=== PATIENT | female | born 1950 | race Caucasian/White ===

== ENCOUNTER 2025-01-25 12:18 | Inpatient (IN) | payer MEDICARE, OTHER, SELFPAY ==
[2025-01-25] VITALS (10 sets, daily range): BP systolic 98–160; BP diastolic 44–81; PULSE 80–136; RESP 15–22; TEMP 36.4–36.6; O2SAT 92–100; BMI 40.4; BMI 40.0
--- NOTE | ~2025-01-25 | XR_ITS ---
EXAMINATION: XR CHEST CLINICAL INFORMATION: shortness of breath COMPARISON: None available. TECHNIQUE: Frontal view of the chest was obtained. FINDINGS: Cardiac contours mildly enlarged. Pulmonary vessels are minimally prominent. Lungs are clear. There is no sign of pleural effusion. Bony elements are unremarkable. XR/XR chest 1V IMPRESSION: Cardiomegaly and borderline pulmonary vascular congestion. Electronically signed by: Conner Catalan MD 01/25/2025 12:55 PM EDT
--- NOTE | 2025-01-25 12:27 | ECG_ITS ---
Test Reason : SOB Blood Pressure : */* mmHG Vent. Rate : 138 BPM Atrial Rate : * BPM P-R Int : * ms QRS Dur : 70 ms QT Int : 296 ms P-R-T Axes : * 11 -21 degrees QTcB Int : 448 ms Atrial fibrillation with rapid ventricular response Abnormal ECG No previous ECGs available Referred By: Shweta Cespedes Electronically Signed By: TOMASA TALBERT MD
--- NOTE | 2025-01-25 12:40 | ED_ITS ---
[facility] - General Adult General Chief complaint: Dyspnea Stated complaint: ABD PAIN,SOB PER EMS Time Seen by Provider: 01/25/25 12:24 Source: patient Mode of arrival: EMS Limitations: no limitations History of Present Illness ED Provider: Dr. Cespedes [facility] narrative: 74-year-old female no medical history presented hospital today for worsening shortness of breath. Patient stated that her shortness of breath has been going on since June. However past 3 or 4 days been getting worse. She described as exertional shortness of breath. Denies any chest pain no nausea no vomiting no diarrhea. Denies any recent illness denies any fever. Denies any urinary symptoms. Denies any coughing. No recent travel no recent surgical procedure, no hemoptysis, no leg swelling Related Data Home Medications ?Medication ?Instructions ?Recorded ?Confirmed levothyroxine 01/25/25 losartan 50 mg tablet 50 mg PO DAILY 01/25/2501/07 Allergies Allergy/AdvReac Type Severity Reaction Status Date / Time amoxicillin Allergy Wheezing Verified 01/25/25 12:26 Iodinated Contrast Media (IV Allergy Shortness Verified 01/25/25 12:26 Contrast Dye) of Breath Review of Systems 2 Review of Systems: Pertinent review of system as mentioned in HPI all other system are reviewed and are negative. ON LICENSE OF [facility] Past Medical History ON LICENSE OF [facility] Narrative: As mentioned in HPI Social History Social History Advance Directives: No Advance Directives Information Provided: Yes Do you have a plan to hurt others: No Plan Physical Exam ED Exam Exam: General: Pleasant, no distress, interacting appropriately Head: Normacephalic, atraumatic ENT: oral mucosa moist, neck supple, no tracheal deviation Cardiovascular: Tachycardic rate, irregular rhythm, no murmurs, rubbing, gallops Respiratory: CTAB, no wheeze, rales, rhonchi Gastrointestinal: Soft, non distended, non tender, non guarding Extremities: No limb pain or swelling, no calf tenderness Neurological: Awake and alert, no facial droop noted Skin: Warm and dry Psychiatric: Appropriate mood and thoughts Vital Signs: Vital Signs - 24 hr 01/25/25 12:22 01/25/25 12:40 01/25/25 12:43 Temperature 98 F 97.9 F Pulse Rate 136 H 102 H Pulse Rate [Automated] 107 H Respiratory Rate 22 H 22 H Blood Pressure 160/81 H 118/60 Pulse Oximetry 98 Oxygen Delivery Method Oxygen Flow Rate 01/25/25 13:42 01/25/25 14:12 01/25/25 14:19 Temperature Pulse Rate 100 95 Pulse Rate [Automated] Respiratory Rate 16 Blood Pressure 119/63 113/44 L 115/58 L Pulse Oximetry 99 Oxygen Delivery Method Nasal Cannula Oxygen Flow Rate 2 BMI result Body Mass Index 40.4 Medications Administered Discontinued Medications Generic Name Dose Route Start Last Admin Trade Name Freq PRN Reason Stop Dose Admin Diltiazem HCl 28.4 mg 01/25/25 12:28 01/25/25 12:38 Diltiazem Hcl 50 Mg/10 Ml Vial 0.25 mg/kg (28.4 mg) 01/25/25 12:29 28.4 mg IVPUSH Administration ONCE ONE Diltiazem HCl 90 mg 01/25/25 13:01 01/25/25 13:42 Diltiazem Hcl Sr 90 Mg Cap.Er.12h PO 01/25/25 13:02 90 mg ONCE ONE Administration Protocol Furosemide 20 mg 01/25/25 14:01 01/25/25 14:12 Furosemide 20 Mg/2 Ml Vial IVPUSH 01/25/25 14:02 20 mg ONCE ONE Administration Protocol Sodium Chloride 500 mls @ 500 mls/hr 01/25/25 12:30 01/25/25 13:42 Ns IV 01/25/25 13:29 Infused .Q1H QUAN Infusion Medical Decision Making Medical Decision Making [facility] Narrative: 74-year-old female presenting to hospital today for evaluation of exertional shortness of breath that has been worsening for the past 3 or 4 days. On my examination patient is tachycardic and irregular. I suspect patient's is in AFib. This was confirmed with EKG that was obtained. The patient has any new AFib RVR. Patient rate is between 130s and 150s on the monitor at this time. Blood pressure stable at this time. We will plan to give patient IV diltiazem for her AFib RVR. She has no history of AFib in the past. CBC CMP magnesium will be obtain assess for any signs of secondary cause of her AFib. TSH level will be obtained as well. A screening chest x-ray will be obtained to evaluate for any pulmonary cause of her shortness of breath. BNP and troponin will be obtained as well. Reviewed patient's chest x-ray shows pulmonary vascular congestion with cardiomegaly, BNP slightly elevated at 120, troponin is negative at 5.1, she does have elevation of TSH at 30.19 however free T4 is 0.86. Patient does have a low creatinine of 2.21. On further discussion with patient patient states she does follow with Nephrology. She stated her kidney function is low. It does appear underlying CKD. This may be cardiorenal in nature. Patient's rate is controlled at this time. I did give her IV diltiazem p.o. diltiazem. Her heart rate is in 90s in AFib. Given new onset of AFib in the setting of CHF. We will plan to admit the patient hospital for echocardiogram. Cardiology team was consulted as well. Recommend initiation of DOAC, metoprolol and diuresis. Differential Diagnosis AFib, SVT, V-tach , CHF, COPD, ACS Admission/Observation Consideration of admission/observation: Escalation of care including admission/observation considered Consult Healthcare Provider Management of the patient was discussed with: Hospitalist and Senior Materials Planner (executive advisor) Lab Data MDM Lab Attestation statement: I reviewed the patient's lab results. 01/25/25 12:35 01/25/25 12:36 Labs: Lab Results 01/25/25 01/25/25 Range/Units 12:35 12:36 WBC 12.6 H (4.8-10.8) X10*3/uL RBC 4.90 (4.20-5.50) X10*6/uL Hgb 13.8 (12.0-16.0) g/dl Hct 41.7 (37.0-47.0) % MCV 85.1 (80.0-98.0) fL MCH 28.2 (27.0-33.0) pg MCHC 33.1 (31.0-35.0) g/dl RDW 14.5 (11.0-16.0) % Plt Count 378 (160-400) X10*3/uL MPV 10.7 (9.4-12.3) fL Immature Gran % (Auto) 0.3 (0.0-0.4) % Neut % (Auto) 79.5 H (45-73) % Lymph % (Auto) 8.7 L (20-40) % [place] % (Auto) 9.9 (2-11) % Eos % (Auto) 1.3 (0-4) % Baso % (Auto) 0.3 (0-2) % Lymph # (Auto) 1.1 L (1.2-4.9) X10*3/uL [place] # (Auto) 1.2 (0.1-1.2) X10*3/uL Eos # (Auto) 0.2 (0.0-0.4) X10*3/uL Baso # (Auto) 0.0 (0.0-0.2) X10*3/uL Abs Immat Gran (auto) 0.04 H (0.00-0.03) X10*3/uL Absolute Neuts (auto) 10.0 H (2.0-8.3) x10*3/uL Absolute Nucleated RBC 0.000 (0.0-0.012) X10*3/uL Nucleated RBC % (auto) 0.0 (0.0-0.2) /100WBC PT 12.3 (10.9-12.4) SEC INR 1.1 (0.9-1.1) APTT 27.6 (26.7-34.1) SEC Sodium 138 (135-145) mmol/L Potassium 4.0 (3.3-5.1) mmol/L Chloride 102 (96-108) mmol/L Carbon Dioxide 25 (22-29) mmol/L Anion Gap 15 (12-20) BUN 29 H (9-16) mg/dL Creatinine 2.21 H (0.5-1.4) mg/dL Estim Creat Clear Calc 28.1 Estimated GFR 22 Random Glucose 118 H (60-115) mg/dL Calcium 9.6 (8.4-10.2) mg/dL Magnesium 2.8 H (1.6-2.6) mg/dL Total Bilirubin 0.4 (0.0-1.0) mg/dL AST 24 (5-31) U/L ALT 15 (0-31) U/L Alkaline Phosphatase 150 H (39-117) U/L Troponin I High Sens 5.1 (<3.5-17.0) ng/L B-Natriuretic Peptide 120 H (<100) pg/mL Total Protein 8.1 H (6.5-8.0) g/dL Albumin 3.9 (3.5-5.0) g/dL TSH 30.19 H (0.32-4.0) uIU/mL Free T4 0.86 (0.71-1.85) ng/dL Independent Interpretation I performed an independent interpretation of an: EKG, Rhythm Strip and Plain X- Ray Radiology Impression Discussion of test interpretation with radiology: I have reviewed the radiologist's reading. Critical Care Time Critical Care Time Critical Care Time: Yes Total Critical Care Time: 45 Attestation: Time is exclusive of separately billable procedures. Time includes: direct patient care, patient reassessment, coordination of patient care, interpretation of data (laboratory data, pulse oximetry, arterial blood gases and chest xrays), review of patient's medical records, medical consultation and documentation of patient care. Procedures excluded from critical care time: central intravenous line placement and electrocardiography. Discharge Plan Discharge Clinical Impression: New onset a-fib, CHF (congestive heart failure), Atrial fibrillation with rapid ventricular response Patient Disposition: Admitted As Inpatient Print Language: Kyrgyz
--- NOTE | 2025-01-25 12:40 | PC.NURSE ---
pt presents c/o increased HERNANDEZ x june but worsened over the past few day. pt reports today is the day and i've just had it so came she in to get evaluated. pt denies any recent chest pain/palpitations/dizziness/fevers/chills/increase in leg swelling. pt noted to be in afib RVR w/ a HR in the 150s. ekg obtained by tech. 18gIV placed in the left AC. additional 18gIV placed in the right forearm - labs obtained/sent to lab. medication administered per provider order. effectiveness pending. pt otherwise on RA w/o difficulty - no sob/wob noted. respirations even/unlabored. plan of care ongoing. call brandt placed within reach.
[2025-01-25 12:41] LABS: MANUAL DIFF FLAG NO
[2025-01-25 12:43] LABS: Hematocrit 41.7 % (37.0-47.0); Hemoglobin 13.8 g/dl (12.0-16.0); Imm Gran Abs Auto 0.04 X10*3/uL (0.00-0.03); Imm Gran Pct Auto 0.3 % (0.0-0.4); Lymphocytes Absolute Auto 1.1 X10*3/uL (1.2-4.9); Mean Corpuscular HGB Conc 33.1 g/dl (31.0-35.0); Mean Corpuscular Hemoglobin 28.2 pg (27.0-33.0); Mean Corpuscular Volume 85.1 fL (80.0-98.0); NRBC Abs Auto 0.000 X10*3/uL (0.0-0.012); NRBC Pct Auto 0.0 /100WBC (0.0-0.2); Platelet Count 378 X10*3/uL (160-400); Red Blood Count 4.90 X10*6/uL (4.20-5.50); White Blood Count 12.6 X10*3/uL (4.8-10.8)
[2025-01-25 12:49] LABS: INTERNATIONAL NORM RATIO 1.1 (0.9-1.1); Prothrombin Time 12.3 SEC (10.9-12.4)
[2025-01-25 12:52] LABS: Partial Thromboplastin Time 27.6 SEC (26.7-34.1)
--- NOTE | 2025-01-25 13:01 | ECG_ITS ---
Test Reason : AFIB Blood Pressure : */* mmHG Vent. Rate : 98 BPM Atrial Rate : * BPM P-R Int : * ms QRS Dur : 74 ms QT Int : 346 ms P-R-T Axes : * 30 -16 degrees QTcB Int : 441 ms Atrial fibrillation Abnormal ECG When compared with ECG of 25-Jan-2025 12:29, No significant change was found Referred By: Shweta Cespedes Electronically Signed By: TOMASA TALBERT MD
[2025-01-25 13:03] LABS: Alanine Aminotransferase 15 U/L (0-31); Albumin Level 3.9 g/dL (3.5-5.0); Alkaline Phosphatase 150 U/L (39-117); Anion Gap 15 (12-20); Aspartate Amino Transferase 24 U/L (5-31); B Type Natriuretic Peptide 120 pg/mL (<100); Blood Urea Nitrogen 29 mg/dL (9-16); Calcium 9.6 mg/dL (8.4-10.2); Carbon Dioxide 25 mmol/L (22-29); Chloride 102 mmol/L (96-108); Creatinine Clr Calc Pharmacy 28.1; Estimated Glomerular Filt Rate 22; Magnesium 2.8 mg/dL (1.6-2.6); Potassium 4.0 mmol/L (3.3-5.1); Sodium 138 mmol/L (135-145); Total Protein 8.1 g/dL (6.5-8.0); Troponin-I High Sensitivity 5.1 ng/L (<3.5-17.0)
--- NOTE | 2025-01-25 13:20 | PC.NURSE ---
HR improved s/p medication administration. repeat obtained by [facility]. HR remains in afib w/ a rate of 100-110bpm. pt currently denies any chest pain/palpitations/sob/dizziness/lightheadedness. resting in no apparent distress. pending CXR results. plan of care ongoing. call brandt placed within reach.
[2025-01-25] MEDS: dilTIAZem HCL SR 90 MG CAP.ER.12H PO (13:42)
[2025-01-25 13:53] LABS: Free T4 (Free Thyroxine) 0.86 ng/dL (0.71-1.85)
[2025-01-25] MEDS: Furosemide 20 MG/2 ML VIAL IVPUSH (14:12)
--- NOTE | 2025-01-25 14:30 | PC.NURSE ---
medication administered per provider order. pt notified/aware that she will be admitted to the hospitalist services. agreeable to plan of care.
--- NOTE | 2025-01-25 15:11 | PHA.MEDREC ---
Pharmacy Consult ? Medication Reconciliation Pharmacy has completed the medication reconciliation. Spoke to patient to confirm med list. Patient had her medication bottle with her. patient states she last had her medications yesterday.
--- NOTE | 2025-01-25 15:13 | PHA.MEDREC ---
Addendum entered by Eileen Holguin RPh 01/25/25 15:17: MED REC REVIEWED BY [facility] Original Note: Pharmacy Consult ? Medication Reconciliation Pharmacy has completed the medication reconciliation.. Spoke to patient to confirm med list. Patient had her medication bottle with her. Patient states her provider took her off Amlodipine 5 mg. patient states she last had her medications yesterday.
--- NOTE | 2025-01-25 15:25 | PC.NURSE ---
Pt ambulated to bathroom independently. Denies SOB on exertion
--- NOTE | 2025-01-25 15:33 | PM.IMHP ---
History of Present Illness Date of Service: 01/25/25 Attending physician on admission: Nile Bacon Chief Complaint: Shortness of breath at rest and exertion, fatigue Patient is a 74-year-old female with a background history of hypothyroidism, hypertension and CKD, presenting to hospital with complaints of exertional shortness of breath progressively worsening to shortness of breath at rest, & fatigue and malaise. The patient reports that since June 2024, she suffered significant fatigue and notable exertional dyspnea. She reports that this started suddenly, came out of the blue . Identified unable to perform exertional tasks that she normally used to do such as going upstairs or walking. Reports no chest pain, palpitations, dizziness, loss of consciousness, left arm or shoulder pressure, jaw pain or pressure. Patient denies exertional chest pain or pressure. Reports that the exertional dyspnea has been progressively worsening over the past few months. Notes that her legs feel more heavy; but no overt swelling. No cramping when walking. Reports worsening constipation, decreased appetite; but no weight loss. Endorses significant fatigability and malaise; despite getting a good night's rest. No paroxysmal nocturnal dyspnea, no orthopnea. She reports prior medical diagnosis of hypertension, taking losartan (unsure of med), as well as hypothyroidism taking levothyroxine. She reports taking her meds 50% of the time; noncompliant. She being told a few months ago she suffered with CKD; PCP/Nephrology have reviewed the patient in the past. Review of Systems Review of Systems: Yes all other systems are reviewed and are negative PMFSH Cognitive capacity: Alert and oriented to person place and time Functional capacity: independent ambulation Social History (Updated 01/25/25 @ 15:40 by Nile Bacon MD) Patient Tobacco Use Status: Former Tobacco user Tobacco use type: Cigarette Cigarette Packs Per Day: 1.5 Years Smoked: 20 years Meds Allergies Allergy/AdvReac Type Severity Reaction Status Date / Time amoxicillin Allergy Wheezing Verified 01/25/25 12:26 Iodinated Contrast Media (IV Allergy Shortness Verified 01/25/25 12:26 Contrast Dye) of Breath Active Medications: Current Medications Acetaminophen (Acetaminophen 325 Mg Tablet) 650 mg PO Q6H PRN PRN Reason: Pain, Mild 1-3,fever,headache Calcium Carbonate (Calcium Carbonate 750 Mg Tab.Chew) 750 mg PO Q4H PRN PRN Reason: Heartburn Furosemide (Furosemide 20 Mg/2 Ml Vial) 20 mg IVPUSH BID QUAN; Protocol Heparin Sodium (Porcine) (Heparin Sodium,Porcine 5,000 Unit/Ml Vial) 5,000 unit SUBCUT Q12H QUAN Levothyroxine Sodium (Levothyroxine Sodium 125 Mcg Tablet) 125 mcg PO DAILY [facility] Magnesium Hydroxide (Milk Of Magnesia 30 Ml Oral.Susp) 30 ml PO DAILY PRN PRN Reason: Constipation Melatonin (Melatonin 3 Mg Tablet) 6 mg PO BEDTIME PRN PRN Reason: Insomnia Metoprolol Tartrate (Metoprolol Tartrate 25 Mg Tablet) 25 mg PO BID QUAN; Protocol Sodium Chloride (0.9 % Sodium Chloride Flush 3 Ml Syringe) 3 ml IVFLUSH QSHIFT [facility] Home Medications ?Medication ?Instructions ?Recorded ?Confirmed ?Last Taken ?Type levothyroxine 100 mcg tablet 100 mcg PO DAILY@0630 01/25/25 01/25/25 01/24/25 History losartan 50 mg tablet 50 mg PO DAILY 01/25/25 01/25/25 01/24/25 History Physical Exam Vital Signs and Narrative: Vital Signs: Last Vital Signs Temp 97.9 F 01/25/25 12:40 Pulse 95 01/25/25 14:19 Resp 16 01/25/25 14:19 BP 115/58 L 01/25/25 14:19 Pulse Ox 99 01/25/25 14:19 O2 Del Method Nasal Cannula 01/25/25 14:19 O2 Flow Rate 2 01/25/25 14:19 BMI result Body Mass Index 40.4 General: A&O x3, oriented to time place person and situation, comfortable, no pain Cardiac: S1, S2 auscultated with no S3/4, no MRG. Well perfused. Elevated JVP to the angle of the mandible, bibasilar crepitations auscultated. Heart rate irregularly irregular; 90-100bpm. Respiratory: Decreased breath sounds at the bases plan naturally, if midzone wheezing auscultated. Bibasilar crepitations auscultated. No rales. No phlegm production. No fevers GI/ : No abdominal pain on palpation, no masses or distentions. MSK: Normal ambulation without pain at bony prominences or musculature. No lower extremity edema. Neurological: Normal neurological examination on overview, without obvious CN II-XII abnormalities. Results Labs 01/25/25 12:35 01/25/25 12:36 Labs: Laboratory Results - last 24 hr 01/25/25 01/25/25 12:35 12:36 MCV 85.1 MCH 28.2 MCHC 33.1 RDW 14.5 Plt Count 378 MPV 10.7 Immature Gran % (Auto) 0.3 Neut % (Auto) 79.5 H Lymph % (Auto) 8.7 L [place] % (Auto) 9.9 Eos % (Auto) 1.3 Baso % (Auto) 0.3 Lymph # (Auto) 1.1 L [place] # (Auto) 1.2 Eos # (Auto) 0.2 Baso # (Auto) 0.0 Abs Immat Gran (auto) 0.04 H Absolute Neuts (auto) 10.0 H Absolute Nucleated RBC 0.000 Nucleated RBC % (auto) 0.0 PT 12.3 INR 1.1 APTT 27.6 Anion Gap 15 Estim Creat Clear Calc 28.1 Estimated GFR 22 Random Glucose 118 H Calcium 9.6 Magnesium 2.8 H Total Bilirubin 0.4 AST 24 ALT 15 Alkaline Phosphatase 150 H B-Natriuretic Peptide 120 H Total Protein 8.1 H Albumin 3.9 TSH 30.19 H Free T4 0.86 Imaging Radiologist's Impressions: Impressions Chest X-Ray 01/25/25 12:40 IMPRESSION: Cardiomegaly and borderline pulmonary vascular congestion. Electronically signed by: Conner Catalan MD 01/25/2025 12:55 PM EDT RP Assessment and Plan (1) Hypertension: Qualifiers: Hypertension type: unspecified Qualified Code(s): I10 - Essential (primary) hypertension Status: Acute (2) CHF (congestive heart failure): Qualifiers: Heart failure chronicity: acute Heart failure type: unspecified Qualified Code(s): I50.9 - Heart failure, unspecified Status: Acute (3) Atrial fibrillation with rapid ventricular response: Status: Acute (4) Hypothyroidism: Qualifiers: Hypothyroidism type: unspecified Qualified Code(s): E03.9 - Hypothyroidism, unspecified Status: Acute (5) CKD (chronic kidney disease): Qualifiers: Chronic kidney disease stage 3 subtype: stage 3a (GFR 45-59) Chronic kidney disease stage: stage 3 (moderate) Qualified Code(s): N18.31 - Chronic kidney disease, stage 3a Status: Acute (6) Acute CHF (congestive heart failure): Qualifiers: Heart failure type: unspecified Qualified Code(s): I50.9 - Heart failure, unspecified Status: Acute Plan Very pleasant 74-year-old female, with a background history of hypertension, hypothyroidism, CKD, medication noncompliance, presenting to hospital with exertional dyspnea & fatigue, admitted with atrial fibrillation with RVR precipitated by likely acute CHF exacerbation (unknown EF), with a superimposed hypothyroidism (TSH 30). AFib RVR Hemodynamically stable Patient's heart rate on admission 130-150 beats per minute BP stable No chest pain, altered mental status, hypotension. Patient received IV diltiazem - rate control achieved. [id number] score 4. PLAN - admit to cardiac telemetry - start anticoagulation with apixaban - metoprolol 25 mg b.i.d. p.o. - diltiazem IV for AFib RVR - echocardiography - cardiology consultation placed Acute exacerbation of CHF unknown EF Elevated BNP 120, troponin flat. Chest x-ray revealing vascular congestion with cardiomegaly. Possible precipitation from AFib RVR versus hypothyroidism. CHF exacerbation secondary to possible silent ACS event may have also been precipitating factor. Cardiorenal syndrome possible exacerbant PLAN - echocardiography - I/O q.6 hourly - furosemide 20 mg b.i.d. IV - monitor urinary output - metoprolol 25 mg b.i.d. p.o. - cardiology consultation placed Hypothyroidism TSH 30 T4 0.86 Patient is noncompliant with medications PLAN - levothyroxine 125 mcg q.o.d. p.o. - monitor TSH in 1 week time (outpatient) - consider ultrasonography CKD Creatinine 2.2. Impression superimposed cardiorenal syndrome. .Diuresing patient. Etiology undetermined, possibly hypertensive. Further evaluation for other causative etiologies. PLAN - echocardiography - I/O q.6 hourly - furosemide 20 mg b.i.d. IV - would benefit from Gabe/ARB QUALITY METRICS - VTE: Heparin 5000 t.i.d. - CODE STATUS: Full code - DIET: Cardiac diet Quality Stroke Does the patient have a stroke diagnosis?: No VTE Prior VTE?: No VTE Risk Level:: Medical - moderate - high VTE Device Contraindication: Treatment Not Indicated VTE Drug Contraindication: N/A - Med Ordered
--- OUTSIDE RECORDS SUMMARY | 2025-01-25 15:40 | XMS_ITS | Encounter Summary ---
Author Organization [facility] Address [address] [place] [address] Care Team Providers Care Electro Mechanical Technician Name Role Phone Bishop Narayanan MD Primary Care Provider [phone] Encounter Details Date Type Department Care Team (Late st Contact Info) Description 01/25/2025 [place] [facility] [place] [address] [place] [phone] Lillian Jamil RN Social History Tobacco Use Types Packs/Day Years Used Date Smoking Tobacco: Never Smokeless Tobacco: Never Alcohol Use Standard Drinks/Week Comments Not Asked 0 (1 standard drink = 0.6 oz pur e alcohol) Comments Unknown Sex and Gender Information Value Date Recorded Sex Assigned at Not on file Legal Sex Female 12:51 AM EST Gender Identity Not on file Sexual Orientation Not on file documented as of this encounter Progress Notes * Lillian Jamil RN - 01/25/2025 11:16 AM EDT Pt has been SOB for a year but since Friday she is extremely SOB, she cannot walk more than 25 feet without stopping to catch her breath, walking fro her bed to the bathroom she is exhausted, has to stop to rest, is sweating and is short of breath pt denies any chest pain, she has no swelling ' This is new for her since friday pt to call 911 now and go to the ed documented in this encounter Plan of Treatment Not on file documented as of this encounter Visit Diagnoses Not on filedocumented in this encounter Care Teams Electro Mechanical Technician Relationship Specialty Start Date End Date Bishop Narayanan MD [address] [place], [place] [id number] PCP - General Internal Medicine 11/10/15 documented as of this encounter
--- OUTSIDE RECORDS SUMMARY | 2025-01-25 15:40 | XMS_ITS | Clinical Summary ---
Author Organization [facility] Address [address] [address] Phone Care Team Providers Care Cyber Incident Handler Name Role Phone Bishop Narayanan MD Primary Care Provider [phone] Allergies Active Allergy Reactions Criticality Noted Date Comments Amoxicillin 10/10/2023 Amoxicillin-Pot Clavulanate 10/10/19 24 Iodine 10/10/2023 Sulfa Antibiotics High 10/10/2023 Medications levothyroxine (SYNTHROID, LEVOTHROID) 100 MCG tablet Take 100 mcg by mouth 1 (one) time each day 08/07/2023 Active Magnesium 400 MG tablet Take by mouth Active losartan (Cozaar) 50 MG tablet Take 1 tablet (50 mg total) by mouth 1 (one) time each day 30 tablet 11 10/12/2024 Active Active Problems Problem Noted Date Diagnosed Date Hypertension 10/10/2023 Hypothyroidism 10/10/2023 Morbid obesity 10/10/2023 Elevated fasting glucose 10/10/2023 Hyperlipidemia 10/10/2023 Chronic kidney disease 10/10/2023 Menopausal state 10/10/2023 Herpes zoster 10/10/2023 Degeneration of intervertebral disc 10/10/2023 Osteoarthritis 10/10/2023 Immunizations Immunization Administration Dates Next Due Pneumococcal Polysaccharide 02/15/2015 Tdap 01/26/2013 Social History Tobacco Use Types Packs/Day Years Used Date Smoking Tobacco: Never Assessed Comments Unknown Sex and Gender Information Value Date Recorded Sex Assigned at Not on file Legal Sex Female 9:32 AM EDT Gender Identity Not on file Sexual Orientation Not on file Last Filed Vital Signs Vital Sign Reading Time Taken Comments Blood Pressure 132/90 10/12/2024 1:25 PM EDT Pulse 81 10/12/2024 1:25 PM EDT Temperature - - Respiratory Rate - - Oxygen Saturation 98% 10/12/2024 1:25 PM EDT Inhaled Oxygen Concentration - - Weight 111 kg (245 lb) 10/12/2024 1:25 PM EDT Height - - Body Mass Index - - Plan of Treatment Health Maintenance Due Date Last Done Comments Breast Cancer Screening 1949 Colorectal Cancer Screening: Annual FOBT 1998 Colorectal Cancer Screening: Colonoscopy 1998 Colorectal Cancer Screening: Sigmoidoscopy 1998 Pneumococcal Vaccine: 50+ Ye ars (2 of 2 - PCV) 02/16/2016 02/15/2015 Influenza Vaccine (#1) 2025 Hepatitis B Vaccine Aged Out No longe r eligible based on patient's age to complete this topic Insurance Medicare Medicare Care Teams Cyber Incident Handler Relationship Specialty Start Date End Date Bishop Narayanan MD [address] [place] [id number] PCP - General Internal Medicine 08/25/23
[2025-01-25 16:29] LABS: Hemoglobin A1C 189.6237 umol/L; Total Hemoglobin (HGBA1C) 5359.8916 umol/L
[2025-01-25] MEDS: 0.9 % Sodium Chloride Flush 3 ML SYRINGE IVFLUSH (20:57)
[2025-01-26] VITALS (8 sets, daily range): BP systolic 99–128; BP diastolic 55–76; PULSE 72–99; RESP 16–18; TEMP 36.3–36.7; O2SAT 92–94; BMI 40.0
[2025-01-26 06:49] LABS: MANUAL DIFF FLAG NO
[2025-01-26 06:53] LABS: Hematocrit 39.3 % (37.0-47.0); Hemoglobin 13.0 g/dl (12.0-16.0); Imm Gran Abs Auto 0.05 X10*3/uL (0.00-0.03); Imm Gran Pct Auto 0.6 % (0.0-0.4); Lymphocytes Absolute Auto 1.1 X10*3/uL (1.2-4.9); Mean Corpuscular HGB Conc 33.1 g/dl (31.0-35.0); Mean Corpuscular Hemoglobin 28.3 pg (27.0-33.0); Mean Corpuscular Volume 85.4 fL (80.0-98.0); NRBC Abs Auto 0.000 X10*3/uL (0.0-0.012); NRBC Pct Auto 0.0 /100WBC (0.0-0.2); Platelet Count 298 X10*3/uL (160-400); Red Blood Count 4.60 X10*6/uL (4.20-5.50); White Blood Count 8.8 X10*3/uL (4.8-10.8)
--- NOTE | 2025-01-26 07:00 | CA_ITS ---
Transthoracic Echocardiogram Patient (Last, First, Middle): Aisha Gonsalves, Gender: Female Date of : 1950 Age: 74 Procedure Date: 01/26/2025 Procedure Type: Transthoracic Echocardiogram Location: [facility] [place] Height: 167.64 cm Weight: 113.4 kg BSA: 2.20 m2 Heart Rate: bpm BP: 115 / 58 mmHg Oracle Applications Developer: Referring MD: Nile Bacon MD Spice Fumigator: Den Alejandre MD Symptoms: afib RVR, impression of new CHF diagnosis Study Quality: Adequate with contrast ECG Rhythm: Atrial Fibrillation Conclusions: - 1. Low normal LV ejection fraction with LVEF of 50-55% with mild LVH 2. Mildly dilated left atrium 3. Normal measured RV systolic pressure 4. No gross pericardial effusion Findings Procedure Information Contrast agent, definity, is being given per protocol without apparent complications. Left Ventricle Normal left ventricular cavity size. There is mildly increased left ventricular wall thickness. The left ventricular systolic function is low normal. The visually estimated ejection fraction is between 50-55%. Diastolic function is indeterminate on the basis of available data. Right Ventricle Normal right ventricular cavity size and systolic function. Atria The left atrium is mildly dilated. Interatrial shunt cannot be excluded. The right atrium is normal in size. Aortic Valve There is mild calcification of the aortic valve. There is no aortic valve stenosis. There is no aortic valve regurgitation. Mitral Valve There is mild anterior and posterior mitral leaflet thickening. There is mild mitral valve regurgitation. There is no mitral valve stenosis. Pulmonic Valve The pulmonic valve was not well visualized. Tricuspid Valve Likely normal tricuspid valve structure and function. There is trace tricuspid valve regurgitation. The right ventricular systolic pressure is normal. The right ventricular systolic pressure is 14 mmHg. Normal right atrial pressure. There is no evidence of pulmonary hypertension. Great Vessels All visible segments of the aorta are normal in size. The pulmonary artery was not well visualized. There is no dilatation of the ascending aorta measuring 3.20 cm. Venous The inferior vena cava is normal in size and collapses greater than 50% with inspiration. Pericardium/Pleural There is no evidence of pericardial effusion. Prior Study Comparison No prior study available for comparison. Measurements 2D Linear Measurements IVSd: 1.25 0.6-0.9/0.6-1.0 cm LVIDd: 3.79 3.9-5.3/4.2-5.9 cm LVIDd Index: 1.72 2.4-3.2/2.2-3.1 cm/m2 LVIDs: 2.68 2.0-3.6 cm LVPWd: 1.26 0.7-1.1 cm Ao Root: 2.90 2.1-3.5 cm LA Diam: 4.70 2.7-3.8/3.0-4.0 cm LAIDs Index: 2.14 1.5-2.3 cm/m2 LV Mass: 203.43 67-162/88-224 g LV Mass Index: 92.47 43-95/49-115 g/m2 LVOT Diam: 2.00 3.0+(-)1.3 cm 2D Systolic Function EF 4C: 48.70 >55% EF 2C: 54.60 >55% EF BiP: 52.60 >55% Mitral Valve MV Pk E: 1.30 MV Decel Time: 440.00 E'Lateral: 6.09 E'Medial: 4.90 E/E' Med: 26.50 E/E' Lat: 21.30 PHT: 129.00 MVA PHT: 1.71 Decel [place]: 2.96 Aortic Valve AoV Pk Rojelio: 1.77 AoV Mn Rojelio: 1.30 AoV VTI: 0.36 AoV Pk Grad: 13.00 Aov Mn Grad: 8.00 CHRIS Cont.VTI: 1.35 LVOT LVOT Pk Rojelio: 0.71 LVOT Mn Rojelio: 0.50 LVOT VTI: 0.15 LVOT Pk Grad: 2.00 LVOT Mn Grad: 1.00 LVOT Diam: 2.00 LVOT Area: 3.14 Diastolic Function MV Pk E: 1.30 E'Medial: 4.90 E/E' Med: 26.50 E' Laterial: 6.09 E/E' Lat: 21.30 Right Ventricle TAPSE (mm): 21.70 TVS' Rojelio: 9.68 Tricuspid Valve TR Pk Rojelio: 1.67 TR Pk Grad: 11.00 RA Press: 3.00 RVSP: 14.00 Great Vessels Aorta Ao Root-2D: 2.90 2.0-3.7 cm Ao Asc: 3.20 2.1-3.4 cm Pulmonary Valve PV Pk Rojelio: 0.86 Peak PV Grad: 3.00 Updated in Other Vendor System with Status of Final Den Alejandre MD electronically signed on 01/26/2025 11:39:55 AM with status of Final
[2025-01-26 07:17] LABS: Anion Gap 14 (12-20); Blood Urea Nitrogen 28 mg/dL (9-16); Calcium 9.2 mg/dL (8.4-10.2); Carbon Dioxide 24 mmol/L (22-29); Chloride 105 mmol/L (96-108); Cholesterol 203 mg/dL (<200); Creatinine Clr Calc Pharmacy 30.3; Estimated Glomerular Filt Rate 24; HDL Cholesterol 37 mg/dL (>40); Magnesium 2.7 mg/dL (1.6-2.6); Potassium 4.2 mmol/L (3.3-5.1); Sodium 139 mmol/L (135-145); Triglycerides 123 mg/dL (<150)
[2025-01-26 07:40] LABS: Glucose, Whole Blood 100 mg/dL (60-115)
[2025-01-26] MEDS: Furosemide 20 MG/2 ML VIAL IVPUSH ×2 (08:07→14:30)
[2025-01-26] MEDS: 0.9 % Sodium Chloride Flush 3 ML SYRINGE IVFLUSH ×3 (08:10→23:22)
--- NOTE | 2025-01-26 09:55 | MHC.CM.PN ---
CM ATTEMPTED TO MEET W/PT X2, FIRST PT WAS HAVING ECHO AND 2ND TIME PT W/BUSINESS OFFICE SPECIALIST, FRANKO TO REVISIT.
--- NOTE | 2025-01-26 11:04 | P.CONCA_ITS ---
History of Present Illness History of Present Illness Date of Service: 01/26/25 Requesting physician: Shweta Cespedes Consult reason: atrial fibrillation and congestive heart failure Chief complaint: ABD PAIN,SOB PER EMS Narrative: I was consulted to see Aisha in cardiology consultation today as she presented to the emergency room with profuse sweating and worsening shortness of breath over last 3-4 days. Patient says she lives in his elderly housing and who was feeling this symptoms then went down to the common area and spoke to some of the people and they advised her to come to the emergency room with these symptoms although she declined and subsequently she started feeling more poorly with increasing shortness of breath and then decided to call 911 came to the emergency room. When she came to the emergency room she was noted to be in atrial fibrillation rapid ventricular response which is a new finding for her. She has no prior history of atrial fibrillation but thinks that this might be present since June although she is not sure. She has never had any history of congestive heart failure. BNP was mildly elevated although findings on radiographic imaging consistent with heart failure. She was given IV diuresis in his diuresed well although intake and output chart have not been well published. She underwent an echocardiogram this morning. She was given Cardizem for rate control and she has been adequately rate control as tolerated on metoprolol. She has not been started on oral anticoagulation therapy for route some reason. She has no bleeding issues. She has no prior vascular disease or myocardial infarction or stroke. She does have prior history of hypertension. She denies any palpitations related to atrial fibrillation. No lightheadedness, syncope. She does complain of daytime somnolence Review of Systems 2 Constitutional: Constitutional: Reports excessive sweating and Reports weakness Eyes: Eyes: Reports no additional eye complaints Cardiovascular: Cardiovascular: Denies chest pain, Denies pedal edema, Denies lightheadedness, Denies Loss of Consciousness, Denies palpitations, Reports dyspnea and Reports dyspnea on exertion Respiratory: Respiratory: Reports no additional respiratory complaints, Reports dyspnea and Reports dyspnea on exertion Gastrointestinal: Gastrointestinal: Reports no additional gastrointestinal complaints Genitourinary: Genitourinary: Reports no additional female genitourinary complaints Musculoskeletal: Musculoskeletal: Reports no additional musculoskeletal complaints Integumentary/Breasts: Skin/Breast: Reports system reviewed and no additional complaints, except as docu Neurologic: Reports system reviewed and no additional complaints, except as documented and Reports weakness Psychiatric: Psychiatric: Reports no additional psychiatric complaints Endocrine: Endocrine: Reports no additional endocrine complaints, Reports excessive sweating and Denies palpitations [facility] Social History Social History (Updated 01/25/25 @ 15:40 by Nile Bacon MD) Household Members: None Patient Tobacco Use Status: Former Tobacco user Tobacco use type: Cigarette Cigarette Packs Per Day: 1.5 Years Smoked: 20 years Meds Allergies Allergy/AdvReac Type Severity Reaction Status Date / Time amoxicillin Allergy Wheezing Verified 01/25/25 12:26 Iodinated Contrast Media (IV Allergy Shortness Verified 01/25/25 12:26 Contrast Dye) of Breath Active Medications: Current Medications Acetaminophen (Acetaminophen 325 Mg Tablet) 650 mg PO Q6H PRN PRN Reason: Pain, Mild 1-3,fever,headache Calcium Carbonate (Calcium Carbonate 750 Mg Tab.Chew) 750 mg PO Q4H PRN PRN Reason: Heartburn Furosemide (Furosemide 20 Mg/2 Ml Vial) 20 mg IVPUSH BID [facility]; Protocol Last Admin: 01/26/25 08:07 Dose: 20 mg Heparin Sodium (Porcine) (Heparin Sodium,Porcine 5,000 Unit/Ml Vial) 5,000 unit SUBCUT Q12H [facility] Last Admin: 01/26/25 06:17 Dose: 5,000 unit Levothyroxine Sodium (Levothyroxine Sodium 125 Mcg Tablet) 125 mcg PO DAILY@0630 [facility] Last Admin: 01/26/25 06:18 Dose: 125 mcg Magnesium Hydroxide (Milk Of Magnesia 30 Ml Oral.Susp) 30 ml PO DAILY PRN PRN Reason: Constipation Melatonin (Melatonin 3 Mg Tablet) 6 mg PO BEDTIME PRN PRN Reason: Insomnia Metoprolol Tartrate (Metoprolol Tartrate 25 Mg Tablet) 25 mg PO BID [facility]; Protocol Last Admin: 01/26/25 08:07 Dose: 25 mg Sodium Chloride (0.9 % Sodium Chloride Flush 3 Ml Syringe) 3 ml IVFLUSH [facility] Last Admin: 01/26/25 08:10 Dose: 3 ml Home Medications ?Medication ?Instructions ?Recorded ?Confirmed ?Last Taken ?Type levothyroxine 100 mcg tablet 100 mcg PO DAILY@0630 01/25/25 01/24/25 History losartan 50 mg tablet 50 mg PO DAILY 01/25/2501/0701/24/25 History Physical Exam 2 Vital Signs: Vital Signs: Last Vital Signs Temp 98.1 F 01/26/25 07:55 Pulse 84 01/26/25 07:55 Resp 17 01/26/25 07:55 BP 119/55 L 01/26/25 07:55 Pulse Ox 94 01/26/25 07:55 O2 Del Method Room Air 01/26/25 07:55 O2 Flow Rate 2 01/25/25 14:19 BMI result Body Mass Index 40.0 Const: General: cooperative, comfortable, no acute distress, alert and awake Nutritional Appearance: obese Orientation/consciousness: patient oriented x3 HEENT: Head: Yes normocephalic and Yes atraumatic Neck: Neck: Yes trachea midline, Yes supple and Yes no JVD Resp: Effort & Inspection: normal respiratory effort Auscultation: clear to auscultation bilaterally Cardio: Jugular venous distension: no JVD Rate: regular rate Rhythm: a bnormal rhythm irregularly irregular Heart sounds: S1 normal heart sound present, S2 normal heart sound present, no click, no gallops and no murmurs GI: Auscultation: normal bowel sounds Skin: General skin exam: no rashes or lesions noted Neuro: General: patient oriented x3 and no focal motor deficits Extrem: General: Yes no clubbing, cyanosis or edema Objective Labs and Meds 01/26/25 06:30 01/26/25 06:30 Lab results: Laboratory Results - last 24 hr 01/25/25 01/25/25 01/26/25 12:35 12:36 06:30 WBC 12.6 H 8.8 RBC 4.90 4.60 Hgb 13.8 13.0 Hct 41.7 39.3 MCV 85.1 85.4 MCH 28.2 28.3 MCHC 33.1 33.1 RDW 14.5 14.5 Plt Count 378 298 MPV 10.7 10.7 Immature Gran % (Auto) 0.3 0.6 H Neut % (Auto) 79.5 H 74.8 H Lymph % (Auto) 8.7 L 12.8 L [place] % (Auto) 9.9 9.1 Eos % (Auto) 1.3 2.2 Baso % (Auto) 0.3 0.5 Lymph # (Auto) 1.1 L 1.1 L [place] # (Auto) 1.2 0.8 Eos # (Auto) 0.2 0.2 Baso # (Auto) 0.0 0.0 Abs Immat Gran (auto) 0.04 H 0.05 H Absolute Neuts (auto) 10.0 H 6.6 Absolute Nucleated RBC 0.000 0.000 Nucleated RBC % (auto) 0.0 0.0 PT 12.3 INR 1.1 APTT 27.6 Sodium 138 139 Potassium 4.0 4.2 Chloride 102 105 Carbon Dioxide 25 24 Anion Gap 15 14 BUN 29 H 28 H Creatinine 2.21 H 2.04 H Estim Creat Clear Calc 28.1 30.3 Estimated GFR 22 24 POC Glucose Random Glucose 118 H 102 Estimat Average Glucose 108 Hemoglobin A1c % 5.4 Calcium 9.6 9.2 Magnesium 2.8 H 2.7 H Total Bilirubin 0.4 AST 24 ALT 15 Alkaline Phosphatase 150 H Troponin I High Sens 5.1 B-Natriuretic Peptide 120 H Total Protein 8.1 H Albumin 3.9 Triglycerides 123 Cholesterol 203 H LDL Cholesterol, Calc 142 H HDL Cholesterol 37 L TSH 30.19 H Free T4 0.86 01/26/25 07:31 WBC RBC Hgb Hct MCV MCH MCHC RDW Plt Count MPV Immature Gran % (Auto) Neut % (Auto) Lymph % (Auto) [place] % (Auto) Eos % (Auto) Baso % (Auto) Lymph # (Auto) [place] # (Auto) Eos # (Auto) Baso # (Auto) Abs Immat Gran (auto) Absolute Neuts (auto) Absolute Nucleated RBC Nucleated RBC % (auto) PT INR APTT Sodium Potassium Chloride Carbon Dioxide Anion Gap BUN Creatinine Estim Creat Clear Calc Estimated GFR POC Glucose 100 Random Glucose Estimat Average Glucose Hemoglobin A1c % Calcium Magnesium Total Bilirubin AST ALT Alkaline Phosphatase Troponin I High Sens B-Natriuretic Peptide Total Protein Albumin Triglycerides Cholesterol LDL Cholesterol, Calc HDL Cholesterol TSH Free T4 Imaging Radiologist's impression: Impressions Chest X-Ray 01/25/25 12:40 IMPRESSION: Cardiomegaly and borderline pulmonary vascular congestion. Electronically signed by: Conner Catalan MD 01/25/2025 12:55 PM EDT Assessment and Plan (1) Atrial fibrillation with rapid ventricular response: Status: Acute Patient with new onset atrial fibrillation, exact onset unclear from her history. Definitely more than few days. Heart rate is very well controlled on current medications. Will continue rate control for now with metoprolol. Her symptoms are most likely suggestive of heart failure as well as poor stroke volume related to AFib causing her to have ENEDELIA could represent cardiorenal syndrome. Patient she had also been oral anticoagulation therapy and would start her on Eliquis 5 mg b.i.d.. Will review the echocardiogram. Will need outpatient sleep study for management. Had a very detailed discussion about management of atrial fibrillation with her and I have discussed in the future she will most likely will pursue rhythm control approach. (2) Acute CHF (congestive heart failure): Qualifiers: Heart failure type: unspecified Qualified Code(s): I50.9 - Heart failure, unspecified Status: Acute Acute heart failure, preliminary LV ejection fraction seems to be preserved. Most likely related to acute atrial fibrillation. Underlying hypertension. Importance of compliance with medication was discussed. Blood pressure is currently optimized. Continue losartan therapy. Monitor renal function. Would switch Lasix to 20 mg daily p.o. and also start Jardiance 10 mg for her regimen. Will review echocardiogram. Will require ischemic workup as outpatient. Will follow with you Procedures Date of Service Date of Service: 01/26/25
--- NOTE | 2025-01-26 14:49 | MHC.CM.PN ---
EMR REVIEWED, PT W/CHF AND ON IV LASIX BID, PER CARDIO PLAN TO SWITCH TO PO LASIX AND ADD JARDIANCE, CM MET W/PT WHO REPORTS SHE LIVES ALONE IN GROUP HOME APT, IS FULLY INDEP W/CARE, DENIES USE OF DME/SERVICES, GOAL FOR DC IS HOME AND PT WILL NEED [facility] SHUTTLE VS LYFT. PT VERIFIES PCP IS DR. BAIN AT [facility] AND HER HCP IS LISET WHITMAN # ON FILE, PT REPORTS COPY IS AT HOME ABD WAS DONE W/SENIOR HOUSING.
--- NOTE | 2025-01-26 16:31 | P.PNIM_ITS ---
Subjective Subjective Date of Service: 01/26/25 Interval History: No new complaints or issues. Feels overall well. Improved breathing significantly. Denies chest pain palpitations dizziness Physical Exam 2 Exam: Exam: General: A&O x3, oriented to time place person and situation, comfortable, no pain Cardiac: S1, S2 auscultated with no S3/4, no MRG. Well perfused. Elevated JVP to the angle of the mandible, bibasilar crepitations auscultated. Heart rate irregularly irregular; 90-100bpm. Respiratory: Decreased breath sounds at the bases plan naturally, if midzone wheezing auscultated. Bibasilar crepitations auscultated. No rales. No phlegm production. No fevers GI/ : No abdominal pain on palpation, no masses or distentions. MSK: Normal ambulation without pain at bony prominences or musculature. No lower extremity edema. Neurological: Normal neurological examination on overview, without obvious CN II-XII abnormalities. Vital Signs: Vital Signs: Last Vital Signs Temp 97.4 F 01/26/25 15:14 Pulse 76 01/26/25 15:14 Resp 18 01/26/25 15:14 BP 122/57 L 01/26/25 15:14 Pulse Ox 93 01/26/25 15:14 O2 Del Method Room Air 01/26/25 15:14 O2 Flow Rate 2 01/25/25 14:19 BMI result Body Mass Index 40.0 Objective Data Active Medications Acetaminophen (Acetaminophen 325 Mg Tablet) 650 mg PO Q6H PRN PRN Reason: Pain, Mild 1-3,fever,headache Calcium Carbonate (Calcium Carbonate 750 Mg Tab.Chew) 750 mg PO Q4H PRN PRN Reason: Heartburn Furosemide (Furosemide 20 Mg/2 Ml Vial) 20 mg IVPUSH BID [facility]; Protocol Last Admin: 01/26/25 14:30 Dose: 20 mg Documented By: CHRISTIN Comments: PER MD Yap to be administered early Heparin Sodium (Porcine) (Heparin Sodium,Porcine 5,000 Unit/Ml Vial) 5,000 unit SUBCUT Q12H [facility] Last Admin: 01/26/25 15:43 Dose: 5,000 unit Documented By: CHRISTIN Levothyroxine Sodium (Levothyroxine Sodium 125 Mcg Tablet) 125 mcg PO DAILY@0630 [facility] Last Admin: 01/26/25 06:18 Dose: 125 mcg Documented By: JENNIFER Magnesium Hydroxide (Milk Of Magnesia 30 Ml Oral.Susp) 30 ml PO DAILY PRN PRN Reason: Constipation Melatonin (Melatonin 3 Mg Tablet) 6 mg PO BEDTIME PRN PRN Reason: Insomnia Metoprolol Tartrate (Metoprolol Tartrate 25 Mg Tablet) 25 mg PO BID [facility]; Protocol Last Admin: 01/26/25 08:07 Dose: 25 mg Documented By: CHRISTIN Sodium Chloride (0.9 % Sodium Chloride Flush 3 Ml Syringe) 3 ml IVFLUSH QSHIFT [facility] Last Admin: 01/26/25 14:33 Dose: 3 ml Documented By: CHRISTIN Labs 01/26/25 06:30 01/26/25 06:30 Labs: Laboratory Results - last 24 hr 01/26/25 01/26/25 06:30 07:31 MCV 85.4 MCH 28.3 MCHC 33.1 RDW 14.5 Plt Count 298 MPV 10.7 Immature Gran % (Auto) 0.6 H Neut % (Auto) 74.8 H Lymph % (Auto) 12.8 L [place] % (Auto) 9.1 Eos % (Auto) 2.2 Baso % (Auto) 0.5 Lymph # (Auto) 1.1 L [place] # (Auto) 0.8 Eos # (Auto) 0.2 Baso # (Auto) 0.0 Abs Immat Gran (auto) 0.05 H Absolute Neuts (auto) 6.6 Absolute Nucleated RBC 0.000 Nucleated RBC % (auto) 0.0 Anion Gap 14 Estim Creat Clear Calc 30.3 Estimated GFR 24 POC Glucose 100 Random Glucose 102 Calcium 9.2 Magnesium 2.7 H Triglycerides 123 Cholesterol 203 H LDL Cholesterol, Calc 142 H HDL Cholesterol 37 L Assessment and Plan (1) Hypertension: Status: Acute (2) Acute CHF (congestive heart failure): Status: Acute (3) Atrial fibrillation with rapid ventricular response: Status: Acute (4) Hypothyroidism: Status: Acute (5) CKD (chronic kidney disease): Status: Acute Plan Very pleasant 74-year-old female, with a background history of hypertension, hypothyroidism, CKD, medication noncompliance, presenting to hospital with exertional dyspnea & fatigue, admitted with atrial fibrillation with RVR precipitated by likely acute CHF exacerbation (unknown EF), with a superimposed hypothyroidism (TSH 30). AFib RVR Hemodynamically stable Patient's heart rate on admission 130-150 beats per minute BP stable No chest pain, altered mental status, hypotension. Patient received IV diltiazem - rate control achieved. [id number] score 4. PLAN - admit to cardiac telemetry - start anticoagulation with apixaban - metoprolol 25 mg b.i.d. p.o. - diltiazem IV for AFib RVR - echocardiography - cardiology consultation placed Acute exacerbation of CHF unknown EF Elevated BNP 120, troponin flat. Chest x-ray revealing vascular congestion with cardiomegaly. Possible precipitation from AFib RVR versus hypothyroidism. CHF exacerbation secondary to possible silent ACS event may have also been precipitating factor. Cardiorenal syndrome possible exacerbant PLAN - echocardiography - I/O q.6 hourly - furosemide 20 mg b.i.d. IV - monitor urinary output - metoprolol 25 mg b.i.d. p.o. - cardiology consultation placed Hypothyroidism TSH 30 T4 0.86 Patient is noncompliant with medications PLAN - levothyroxine 125 mcg q.o.d. p.o. - monitor TSH in 1 week time (outpatient) - consider ultrasonography CKD Creatinine 2.2. Impression superimposed cardiorenal syndrome. .Diuresing patient. Etiology undetermined, possibly hypertensive. Further evaluation for other causative etiologies. PLAN - echocardiography - I/O q.6 hourly - furosemide 20 mg b.i.d. IV - would benefit from Gabe/ARB QUALITY METRICS - VTE: Heparin 5000 t.i.d. - CODE STATUS: Full code - DIET: Cardiac diet Total time managing care of this patient today: 35 minutes. Quality Stroke Does the patient have a stroke diagnosis?: No VTE Prior VTE?: No VTE Risk Level:: Medical - moderate - high VTE Device Contraindication: Treatment Not Indicated VTE Drug Contraindication: N/A - Med Ordered
[2025-01-27 03:22] VITALS: BP 121/69; PULSE 69; RESP 18; TEMP 36; O2SAT 96
[2025-01-27 06:00] VITALS: BMI 40.3
[2025-01-27 06:50] LABS: MANUAL DIFF FLAG NO
[2025-01-27 07:01] LABS: Hematocrit 38.3 % (37.0-47.0); Hemoglobin 12.6 g/dl (12.0-16.0); Imm Gran Abs Auto 0.05 X10*3/uL (0.00-0.03); Imm Gran Pct Auto 0.5 % (0.0-0.4); Lymphocytes Absolute Auto 1.2 X10*3/uL (1.2-4.9); Mean Corpuscular HGB Conc 32.9 g/dl (31.0-35.0); Mean Corpuscular Hemoglobin 27.9 pg (27.0-33.0); Mean Corpuscular Volume 84.9 fL (80.0-98.0); NRBC Abs Auto 0.000 X10*3/uL (0.0-0.012); NRBC Pct Auto 0.0 /100WBC (0.0-0.2); Platelet Count 327 X10*3/uL (160-400); Red Blood Count 4.51 X10*6/uL (4.20-5.50); White Blood Count 9.9 X10*3/uL (4.8-10.8)
[2025-01-27 07:18] LABS: Anion Gap 14 (12-20); Blood Urea Nitrogen 25 mg/dL (9-16); Calcium 9.0 mg/dL (8.4-10.2); Carbon Dioxide 27 mmol/L (22-29); Chloride 102 mmol/L (96-108); Creatinine Clr Calc Pharmacy 32.8; Estimated Glomerular Filt Rate 26; Magnesium 2.5 mg/dL (1.6-2.6); Potassium 4.1 mmol/L (3.3-5.1); Sodium 139 mmol/L (135-145)
[2025-01-27 07:25] LABS: B Type Natriuretic Peptide 103 pg/mL (<100)
[2025-01-27 07:35] VITALS: BP 110/60; PULSE 97; RESP 18; TEMP 36.3; O2SAT 94
[2025-01-27] MEDS: Furosemide 20 MG/2 ML VIAL IVPUSH (08:10)
[2025-01-27] MEDS: 0.9 % Sodium Chloride Flush 3 ML SYRINGE IVFLUSH (08:10)
[2025-01-27] MEDS: Milk of Magnesia 30 ML ORAL.SUSP PO (08:13)
--- NOTE | 2025-01-27 10:35 | P.PNCA_ITS ---
Subjective Subjective Date of Service: 01/27/25 Principal diagnosis: CHF, AFib. Interval history: Heart rate remains controlled. Creatinine has downtrended from yesterday. Echocardiogram showed low normal EF of 50-55% with mild LVH with mildly dilated left atrium. She was no active symptoms. Review of Systems Review of Systems Yes all other systems are reviewed and are negative Cardiovascular: Reports no additional cardiovascular complaints Respiratory: Reports no additional respiratory complaints Genitourinary: Reports no additional female genitourinary complaints Musculoskeletal: Reports no additional musculoskeletal complaints Skin/Breast: Reports system reviewed and no additional complaints, except as docu Physical Exam Vital Signs: Last Vital Signs Temp 97.4 F 01/27/25 07:35 Pulse 97 01/27/25 07:35 Resp 18 01/27/25 07:35 BP 110/60 01/27/25 07:35 Pulse Ox 94 01/27/25 07:35 O2 Del Method Room Air 01/27/25 07:35 O2 Flow Rate 2 01/25/25 14:19 BMI result Body Mass Index 40.3 Const General: cooperative, comfortable and no acute distress Nutritional Appearance: obese Orientation/consciousness: patient oriented x3 Neck Neck: Yes trachea midline, Yes supple and Yes no JVD Resp Effort & Inspection: normal respiratory effort Auscultation: clear to auscultation bilaterally Cardio Rhythm: abnormal rhythm irregularly irregular Heart sounds: S1 normal heart sound present, S2 normal heart sound present, no click and no gallops GI Auscultation: normal bowel sounds Skin General skin exam: no rashes or lesions noted Neuro General: patient oriented x3 and no focal motor deficits Extrem General: Yes no clubbing, cyanosis or edema Objective Labs and Meds 01/27/25 06:41 01/27/25 06:41 Lab results: Laboratory Results - last 24 hr 01/27/25 06:41 WBC 9.9 RBC 4.51 Hgb 12.6 Hct 38.3 MCV 84.9 MCH 27.9 MCHC 32.9 RDW 14.1 Plt Count 327 MPV 10.9 Immature Gran % (Auto) 0.5 H Neut % (Auto) 74.7 H Lymph % (Auto) 12.5 L [place] % (Auto) 9.7 Eos % (Auto) 2.2 Baso % (Auto) 0.4 Lymph # (Auto) 1.2 [place] # (Auto) 1.0 Eos # (Auto) 0.2 Baso # (Auto) 0.0 Abs Immat Gran (auto) 0.05 H Absolute Neuts (auto) 7.4 Absolute Nucleated RBC 0.000 Nucleated RBC % (auto) 0.0 Sodium 139 Potassium 4.1 Chloride 102 Carbon Dioxide 27 Anion Gap 14 BUN 25 H Creatinine 1.89 H Estim Creat Clear Calc 32.8 Estimated GFR 26 Random Glucose 108 Calcium 9.0 Magnesium 2.5 B-Natriuretic Peptide 103 H Progress Note: A&P Assessment and plan (1) Acute CHF (congestive heart failure): Status: Acute Assessment and Plan: Acute congestive heart failure, diastolic much improved. On echocardiogram right atrial pressures are within normal limits. Given her creatinine elevation would hold on loop diuretics on a long-term basis but use as PRN. Would start on Jardiance 10 mg daily to help with heart failure syndrome. Continue metoprolol for rate control. Importance of compliance with medication was discussed the most. She has history of noncompliance in the past. Would hold off on losartan due to her renal function at this point in time. Will need ischemic workup as an outpatient and will be followed up in the outpatient. (2) Atrial fibrillation with rapid ventricular response: Status: Acute Assessment and Plan: New onset atrial fibrillation with only mild atrial enlargement. She was high likelihood of underlying sleep apnea. Will need sleep study at home. Continue metoprolol for rate control. Will follow up with outpatient Holter. Continue full oral anticoagulation with Eliquis. Will follow up in the office in 3 weeks' time and discussed synchronized cardioversion. Importance of compliance with oral anticoagulation was discussed to help with management and reduced risk of thromboembolic complications. Will follow-up as outpatient. Thank you for allowing me to partake in his care Time Spent With Patient Time: Total time managing care of this patient today ____ minutes. Progress Note: Quality Stroke Does the patient have a stroke diagnosis?: No Procedures Date of Service Date of Service: 01/27/25
--- NOTE | 2025-01-27 11:14 | MHC.CM.PN ---
PT MEDICALLY CLEARED FOR DC HOME SELF-CARE, GISELE ARRANGED FOR 12PM.
[2025-01-27 11:47] VITALS: BP 124/64; PULSE 90; RESP 18; TEMP 36.4; O2SAT 96
--- NOTE | 2025-01-27 13:52 | P.DS_ITS ---
DS: Providers Provider Date of Service: 01/25/25 Date of admission: 01/25/25 15:24 Date of discharge: 01/27/25 Primary care physician: Komal Barnett NP Attending physician on admission: Nile Bacon Consults: 01/25/25 15:31 Consult to Cardiology Routine Consulting Provider: [facility] Reason for consultation: new Afib RVR, new CHF exacerbation (unk. EF) Attending physician on discharge: Nile Bacon DS: Diagnosis Discharge Diagnosis (1) Acute CHF (congestive heart failure): Status: Acute (2) Atrial fibrillation with rapid ventricular response: Status: Acute DS: Summary Hospital Course Hospital Course: Patient is a 74-year-old female with a background history of hypothyroidism, hypertension and CKD, presenting to hospital with complaints of exertional shortness of breath progressively worsening to shortness of breath at rest, & fatigue and malaise. The patient reports that since June 2024, she suffered significant fatigue and notable exertional dyspnea. She reports that this started suddenly, came out of the blue . Identified unable to perform exertional tasks that she normally used to do such as going upstairs or walking. Reports no chest pain, palpitations, dizziness, loss of consciousness, left arm or shoulder pressure, jaw pain or pressure. Patient denies exertional chest pain or pressure. Reports that the exertional dyspnea has been progressively worsening over the past few months. Notes that her legs feel more heavy; but no overt swelling. No cramping when walking. Reports worsening constipation, decreased appetite; but no weight loss. Endorses significant fatigability and malaise; despite getting a good night's rest. No paroxysmal nocturnal dyspnea, no orthopnea. She reports prior medical diagnosis of hypertension, taking losartan (unsure of med), as well as hypothyroidism taking levothyroxine. She reports taking her meds 50% of the time; noncompliant. She being told a few months ago she suffered with CKD; PCP/Nephrology have reviewed the patient in the past. The patient was diuresed to euvolemia, with improvement in her atrial fibrillation. She was started on apixaban 5 mg b.i.d. p.o.. She has follow-up in the outpatient setting with cardiology Status at Discharge Functional status at discharge: independent ambulation Overall status at discharge: patient is back to baseline Time Attestation Total time managing care of this patient today: 35 mintues. Discharge Coordination Time (in mins): 15 Quality: Safe Use of Opioids Does Pt have an Active Cancer Diagnosis on the Problem List?: No Quality: Stroke Does the patient have a stroke diagnosis?: No Physical Exam Exam: Exam: General: A&O x3, oriented to time place person and situation, comfortable, no pain Cardiac: S1, S2 auscultated with no S3/4, no MRG. Well perfused. Irregularly irregular consistent with atrial fibrillation Respiratory: Normal breath sounds auscultated throughout all lung zones, without wheezing, rales. Normal rate. GI/ : No abdominal pain on palpation, no masses or distentions. MSK: Normal ambulation without pain at bony prominences or musculature Neurological: Normal neurological examination on overview, without obvious CN II-XII abnormalities. Vital Signs: Vital Signs: Last Vital Signs Temp 97.6 F 01/27/25 11:47 Pulse 90 01/27/25 11:47 Resp 18 01/27/25 11:47 BP 124/64 01/27/25 11:47 Pulse Ox 96 01/27/25 11:47 O2 Del Method Room Air 01/27/25 11:47 O2 Flow Rate 2 01/25/25 14:19 BMI result Body Mass Index 40.3 DS: Data Data Completed and Pending Labs on day of discharge: Laboratory Results - last 24 hr 01/27/25 06:41 WBC 9.9 RBC 4.51 Hgb 12.6 Hct 38.3 MCV 84.9 MCH 27.9 MCHC 32.9 RDW 14.1 Plt Count 327 MPV 10.9 Immature Gran % (Auto) 0.5 H Neut % (Auto) 74.7 H Lymph % (Auto) 12.5 L Monroe % (Auto) 9.7 Eos % (Auto) 2.2 Baso % (Auto) 0.4 Lymph # (Auto) 1.2 Monroe # (Auto) 1.0 Eos # (Auto) 0.2 Baso # (Auto) 0.0 Abs Immat Gran (auto) 0.05 H Absolute Neuts (auto) 7.4 Absolute Nucleated RBC 0.000 Nucleated RBC % (auto) 0.0 Sodium 139 Potassium 4.1 Chloride 102 Carbon Dioxide 27 Anion Gap 14 BUN 25 H Creatinine 1.89 H Estim Creat Clear Calc 32.8 Estimated GFR 26 Random Glucose 108 Calcium 9.0 Magnesium 2.5 B-Natriuretic Peptide 103 H Discharge Plan Discharge Anticipated Discharge Date/Time: 01/27/25 10:40 Patient Disposition: Home, Self-Care Discharge Diagnosis: New onset atrial fibrillation in the setting of acute CHF e xacerbation Referrals: Komal Barnett, AMANDA [Primary Care Provider, Medical] - 1 Week Discharge Medications: New metoprolol tartrate 25 mg Tablet 25 mg PO BID 30 Days Qty: 60 0RF Protocol: Hold for SBP/HR < HOLD for SBP < : 90 HOLD for HR < : 60 Jardiance 10 mg tablet 10 mg PO DAILY Qty: 30 0RF furosemide [Lasix] 20 mg tablet 20 mg PO DAILY 30 Days Qty: 30 0RF apixaban 5 mg tablet 5 mg PO BID 30 Days Qty: 60 0RF Continued losartan 50 mg Tablet 50 mg PO DAILY levothyroxine 100 mcg tablet 100 mcg PO DAILY@0630 Discharge Orders: Discharge Order (Routine); Ordered 01/27/25 Ordered By: Nile Bacon Diet: Advance to usual diet Activity on Discharge: As tolerated Stand Alone Forms: Patient Portal Discharge page Print Language: Singaporean Care Plan Goals: Follow-up and outpatient Cardiology. Will require ischemia workup. Follow up with PCP outpatient setting Repeat TSH Health Concerns: Atrial fibrillation with RVR Acute CHF exacerbation Plan of Treatment: As above Assessment: Alert and oriented to person place time and situation, the patient is currently back to hemodynamic baseline Discharge Date/Time: 01/27/25 11:45
== END 2025-01-27 11:45 | disposition home or self-care (01) | DRG 308 ==
LOC: HO.ED 15:24 → HO.EDOVER 15:30 → HO.IMC 19:20
PROVIDERS: Admitting Provider Hospitalist; Emergency Provider Student in an Organized Health Care Education/Training Program; PCP Nurse Practitioner; Visit Provider Hospitalist
DX: I48.91 Unspecified atrial fibrillation (principal); I50.31 Acute diastolic (congestive) heart failure; I13.0 Hypertensive heart and chronic kidney disease with heart failure and stage 1 through stage 4 chronic kidney disease, or unspecified chronic kidney disease; G47.30 Sleep apnea, unspecified; N18.31 Chronic kidney disease, stage 3a; E03.9 Hypothyroidism, unspecified; Z91.148 Patient's other noncompliance with medication regimen for other reason; Z87.891 Personal history of nicotine dependence; Z79.01 Long term (current) use of anticoagulants; Z79.890 Hormone replacement therapy; Z79.899 Other long term (current) drug therapy
CPT/HCPCS: 36415; 71045; 80048; 80053; 80061; 82947; 83036; 83735; 83880; 84439; 84443; 84484; 85025; 85610; 85730; 93005; 93306; 99285; J1163; J1644; J1938; Q9957

== ENCOUNTER → 2025-01-25 12:27 | Outpatient (BNV) | payer MEDICARE, SELFPAY | PROVIDERS: Admitting Provider Hospitalist; Emergency Provider Student in an Organized Health Care Education/Training Program; Visit Provider Internal Medicine Cardiovascular Disease | DX: I48.91 Unspecified atrial fibrillation (principal) | CPT/HCPCS: 93010 ==

== ENCOUNTER → 2025-01-25 12:29 | Outpatient (BNV) | payer MEDICARE, SELFPAY | PROVIDERS: Emergency Provider Student in an Organized Health Care Education/Training Program; Visit Provider Radiology Diagnostic Radiology | DX: R06.02 Shortness of breath (principal) | CPT/HCPCS: 71045 ==

== ENCOUNTER 2025-01-25 15:24 | Outpatient (BNV) | payer MEDICARE, SELFPAY | END 2025-01-26 07:00 | PROVIDERS: Admitting Provider Hospitalist; Emergency Provider Student in an Organized Health Care Education/Training Program; Visit Provider Internal Medicine Cardiovascular Disease | DX: I48.91 Unspecified atrial fibrillation (principal); I34.0 Nonrheumatic mitral (valve) insufficiency; I51.7 Cardiomegaly; I35.8 Other nonrheumatic aortic valve disorders | CPT/HCPCS: 93306 ==

== ENCOUNTER → 2025-01-25 15:24 | Outpatient (BNV) | payer MEDICARE, SELFPAY | PROVIDERS: Admitting Provider Hospitalist; Emergency Provider Student in an Organized Health Care Education/Training Program; Visit Provider Internal Medicine Cardiovascular Disease | DX: I50.9 Heart failure, unspecified (principal); I48.91 Unspecified atrial fibrillation | CPT/HCPCS: 99233 ==

== ENCOUNTER 2025-02-08 09:19 | Outpatient (REF) | payer MEDICARE, SELFPAY ==
--- OUTSIDE RECORDS SUMMARY | 2025-02-08 10:14 | XMS_ITS | Clinical Summary ---
Author Organization [facility] Address [address] [phone] Phone Care Team Providers Care Boom Cat Operator Name Role Phone Bishop Narayanan MD Primary Care Provider [phone] Allergies Active Allergy Reactions Criticality Noted Date [...] this topic Insurance Medicare Medicare Care Teams Boom Cat Operator Relationship Specialty Start Date End Date Bishop Narayanan MD [address] [place] [phone] PCP - General Internal Medicine 08/25/23
--- OUTSIDE RECORDS SUMMARY | 2025-02-08 10:14 | XMS_ITS | Clinical Summary ---
Author Organization [facility] Address [address] [place] [phone] Phone Care Team Providers Care Security Compliance Specialist Name Role Phone Bishop Narayanan MD Primary Care Provider [phone] Allergies Active Allergy Reactions Criticality Noted Date Comments Amoxicillin-Pot Clavulanate 03/11/20 07 Iodinated Contrast Media 04/23/2005 Other Reaction(s): Hives/Urticaria Penicillins 03/11/2007 Other Reaction(s): OTHER classic drug rash Sulfa (Sulfonamide Antibiotics) 04/23/2005 skin discoloration(purple) all over body Medications levothyroxine (SYNTHROID, LEVOTHROID) 100 mcg tablet Take 1 Tablet by mouth daily. 4 Active amLODIPine (NORVASC) 5 mg tablet TAKE ONE TABLET BY MOUTH EVERY DAY 30 tablet 5 Active Additional Information Patient not taking.Reported on 10/14/2024 magnesium oxide (MAG-OX) 400 mg magnesium tablet Take 1 tablet (400 mg total) by mouth 1 (one) time each day. Active Active Problems Problem Noted Date Diagnosed Date HTN (hypertension) 09/20/2022 CKD (chronic kidney disease) stage 3, GFR 30-59 ml/min ([facility] V24, [facility] V28) 09/20/2022 COVID-19 05/29/2022 Hyperlipidemia 08/22/2020 Herpes zoster without complication 11/25/2017 Elevated glucose 09/10/2017 Morbid obesity ([facility] V24, [facility] V28) 2012 Overview (05/05/2024): BMI 42.47 on 05/24/13. DDD (degenerative disc disease), lumbar 08/20/20 13 Osteoarthritis of hip 01/26/2013 Overview (05/05/2024): IMO update Menopausal state 10/16/2010 Hypothyroid 07/13/2009 Encounters Date Type Department Care Team Description 02/01/2025 Telephone Adult Medicine [address] [phone] Enid Cash [place] 01/25/2025 Telephone Adult Medicine [address] [phone] Lillian Jamil RN from Last 3 Months Immunizations Name Administration Dates Next Due Pneumococcal polysaccharide 23 valent (Pneumovax 23) 2yo and older 02/15/2015 Td Tetanus diptheria (Tdvax) 7yo and older 04/23 Tdap Tetanus diptheria acell ular pertussis (Boostrix; Adacel) 7yo and older 01/26/2013 Surgical History Surgery Date Site/Laterality Comments OTHER SURGICAL HISTORY PROCEDURE: HISTORY OTHER; COMMENT: 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 TUBAL LIGATION PROCEDURE: HISTORICAL TUBAL LIGATION Medical History Medical History Date Comments Hypothyroid DX:Hypothyroid Depression DX:Depression Obesity DX:Obesity Anxiety DX:Anxiety Hyperlipemia DX:Hyperlipemia Menopausal state DX:Menopausal s yoo Family History Medical History Relation Name Comments Breast cancer Neg Hx Relation Name Status Comments Brother 1 Alive Brother 2 Alive Father (Age 92) Mother Alive Sister Alive scleroderma Social History Tobacco Use Types Packs/Day Years Used Date Smoking Tobacco: Never Smokeless Tobacco: Never Alcohol Use Standard Drinks/Week Comments Not Asked 0 (1 standard drink = 0.6 oz pur e alcohol) Comments Unknown Sex and Gender Information Value Date Recorded Sex Assigned at Not on file Legal Sex Female 12:51 AM EST Gender Identity Not on file Sexual Orientation Not on file Obstetrics History Last Filed Vital Signs Vital Sign Reading Time Taken Comments Blood Pressure 124/80 10/14/2024 2:59 PM EDT Pulse 78 10/14/2024 2:59 PM EDT Temperature 36.4 C (97.6 F) 10/14/2024 2:59 PM EDT Respiratory Rate 16 10/14/2024 2:59 PM EDT Oxygen Saturation 98% 10/14/2024 2:59 PM EDT Inhaled Oxygen Concentration - - Weight 113 kg (250 lb) 10/14/2024 2:59 PM EDT Height 167.6 cm (5' 6 ) 10/14/2024 2:59 PM EDT Body Mass Index 40.35 10/14/2024 2:59 PM EDT Plan of Treatment Upcoming Encounters Date Type Department Care Team (Late st Contact Info) Description 02/14/2025 1:30 PM EDT Office Visit Adult Medicine [facility] [address] [place] [address] Bishop Narayanan MD [address] [place] [address] Health Maintenance Due Date Last Done Comments Zoster Vaccines (1 of 2) 1968 Cervical Cancer Screening: Pap Smear 1970 Pneumococcal Vaccine: 50+ Years (2 of 2 - PCV) 02/16/2016 02/15/2015 COVID-19 Vaccine (2 - Derik risk series) 10/06/2020 09/08/2020 Colorectal Cancer Screening: Stool Based Tests (FOBT/FIT) 05/12/2022 Falls Risk Assessment 05/12/2022 Medicare Annual Wellness Visit 05/12/2022 Osteoporosis Screening (Bone Density Screening) 05/12/2022 Social Influencers of Health Screening 05/12/2022 DTaP,Tdap,and Td Vaccines (3 - Td or Tdap) 01/26/2023 01/26/2013, 04/23/2005 Depression Screening 06/09/2024 RSV Immunization Adult Patients (1 - 1-dose 75+ series) 2024 Influenza Vaccine (#1) 2025 Hypertension/CHF/CAD Annual BMP Blood Test 09/29/2025 09/29/2024, 03/09/2024, 03/09/2024, Additional history exists Cholesterol Screening (Lipid Panel) 07/28/2028 07/28/2023 Hepatitis C Screening Completed 03/15/2014 Breast Cancer Screening Discontinued 09/24/19, 03/20/2017, 03/14/2017 HIB Vaccines Aged Out No longer eligi ble based on patient's age to complete this topic HPV Vaccines Aged Out No longer eligi ble based on patient's age to complete this topic Hepatitis A Vaccines Aged Out No long er eligible based on patient's age to complete this topic Hepatitis B Vaccines Aged Out No long er eligible based on patient's age to complete this topic IPV Vaccines Aged Out No longer eligi ble based on patient's age to complete this topic MMR Vaccines Aged Out No longer eligi ble based on patient's age to complete this topic Meningococcal ACWY Vaccine Aged Out N o longer eligible based on patient's age to complete this topic Meningococcal B Vaccine Aged Out No l onger eligible based on patient's age to complete this topic RSV Immunization Patients Under 20 months Aged Out No longer eligible based on patient's age to complete this topic Varicella Vaccines Aged Out No longer eligible based on patient's age to complete this topic Procedures Procedure Name Priority Date/Time Associated Diagnosis Comments ANNUAL BMP BLOOD TEST Routine 03/09/2024 LIPID PANEL Routine 07/28/2023 SCR MAMMO BI INCL CAD Routine 09/23/2018 1:08 PM EDT Encounter for screening mammogram for malignant neoplasm of breast HEPATITIS C SCREENING Routine 03/15/2014 from Last 3 Months or Most Recently Relevant to Health Maintenance Results * Annual BMP Blood Test (03/09/2024) Annual BMP Blood Test abstracted Historical Provider HEALTH MAINTENANCE Final Result * (ABNORMAL) Lipid panel (07/28/2023) LDL/HDL Ratio 3 0 - 4 Triglycerides 111 0 - 150 mg/dL Cholesterol 249(A) 0 - 200 mg/dL HDL 73 >=40 mg/dL LDL Cholesterol 154(A) 0 - 100 mg/dL Blood Venous blood specimen / Unknown us Historical Provider LAB BLOOD ORDERABLES Lucy l Result * SCR MAMMO BI INCL CAD (09/23/2018 1:08 PM EDT) Anatomical Region Laterality Modality Radiographic Shannon ging 03/14/2017 8:55 AM EDT Narrative 09/23/2018 3:02 PM EDT This is a summary report. The complete report is available in the patient's medical record. If you cannot access the medical record, please contact the sending organization for a detailed fax or copy. Full field digital screening mammography, reviewed with CAD and compared prior studies performed between 04/23/2007 and 03/20/2017. The breasts are composed of fatty and fibroglandular tissue. No suspicious mass, architectural distortion or suspicious calcifications are identified. IMPRESSION: : No mammographic evidence of malignancy. BIRADS 1-Negative; N. 5 year breast cancer risk assessment 1.4 % Lifetime breast cancer risk assessment 4.3 % Breast cancer risk category Low (<15%) Procedure Note Shun Dillard MD - 05/28/2022 This is a summary report. The complete report is available in thepatient's medical record. If you cannot access the medical record, pleasecontact the sending organization for a detailed fax or copy. Full field digital screening mammography, reviewed with CAD and comparedprior studies performed between 04/23/2007 and 03/20/2017. The breastsare composed of fatty and fibroglandular tissue. No suspicious mass,architectural distortion or suspicious calcifications are identified. IMPRESSION: : No mammographic evidence of malignancy. BIRADS 1-Negative; N. 5 year breast cancer risk assessment 1.4 % Lifetime breast cancer risk assessment 4.3 % Breast cancer risk category Low (<15%) Amos DAO IMG XR PROCEDURES Lucy l Result * Hepatitis C Screening (03/15/2014) Hepatitis C Screening abstracted Historical Provider HEALTH MAINTENANCE Final Result from Last 3 Months or Most Recently Relevant to Health Maintenance Insurance MEDICARE MEDICAID - [place] Care Teams Security Compliance Specialist Relationship Specialty Start Date End Date Bishop Narayanan MD [address] [place] [address] PCP - General Internal Medicine 11/10/15
[2025-02-08 10:52] LABS: Anion Gap 13 (12-20); Blood Urea Nitrogen 20 mg/dL (9-16); Calcium 9.5 mg/dL (8.4-10.2); Carbon Dioxide 24 mmol/L (22-29); Chloride 107 mmol/L (96-108); Estimated Glomerular Filt Rate 26; Potassium 3.9 mmol/L (3.3-5.1); Sodium 140 mmol/L (135-145)
[2025-02-08 10:53] LABS: B Type Natriuretic Peptide 159 pg/mL (<100)
== END 2025-02-08 09:20 | disposition home or self-care (01) ==
LOC: HO.LAB 09:19
PROVIDERS: PCP Internal Medicine; Visit Provider Internal Medicine Cardiovascular Disease
DX: I11.9 Hypertensive heart disease without heart failure (principal); I50.9 Heart failure, unspecified; I48.91 Unspecified atrial fibrillation
CPT/HCPCS: 36415; 80048; 83880

== ENCOUNTER 2025-02-17 12:51 | Outpatient (AMB) | payer MEDICARE, SELFPAY ==
--- OUTSIDE RECORDS SUMMARY | 2025-02-14 13:30 | XMS_ITS | Encounter Summary ---
Author Organization [facility] Address [address] [place] [address] Care Team Providers Care Cattle Brander Name Role Phone Bishop Narayanan MD Primary Care Provider [phone] Reason for Visit * Reason Comments Follow-up hospital Encounter Details Date Type Department Care Team (Late st Contact Info) Description 02/14/2025 1:30 PM EDT Office Visit Adult Medicine [facility] [address] [place] [phone] Bishop Narayanan MD [address], [place] [id number] New onset a-fib (CMS/HCC V24, CMS/HCC V28) (Primary Dx); Congestive heart failure, unspecified HF chronicity, unspecified heart failure type (CMS/HCC V24, CMS/HCC V28); Other fatigue; Dizziness; Renal insufficiency; Hypothyroidism, unspecified type Social History Tobacco Use Types Packs/Day Years Used Date Smoking Tobacco: Never Smokeless Tobacco: Never Tobacco Cessation:Counseling Given: Not Answered Alcohol Use Standard Drinks/Week Comments Not Asked 0 (1 standard drink = 0.6 oz pur e alcohol) Comments Unknown Sex and Gender Information Value Date Recorded Sex Assigned at Not on file Legal Sex Female 12:51 AM EST Gender Identity Not on file Sexual Orientation Not on file documented as of this encounter Last Filed Vital Signs Vital Sign Reading Time Taken Comments Blood Pressure 100/68 02/14/2025 1:07 PM EDT Pulse 91 02/14/2025 1:07 PM EDT Temperature 36.5 C (97.7 F) 02/14/2025 1:07 PM EDT Respiratory Rate 18 02/14/2025 1:07 PM EDT Oxygen Saturation - - Inhaled Oxygen Concentration - - Weight 110 kg (242 lb) 02/14/2025 1:07 PM EDT Height 167.6 cm (5' 6 ) 02/14/2025 1:07 PM EDT Body Mass Index 39.06 02/14/2025 1:07 PM EDT documented in this encounter Progress Notes * Bishop Narayanan MD - 02/14/2025 1:30 PM EDT CHIEF COMPLAINT: Follow-up (hospital) IDENTIFIER: Aisha Gonsalves is a 74 y.o. old female. HPI: Pt presents for evaluation of multiple medical problems, after recent hospitalization for congestive heart failure/rapid A-fib. This patient has a complex past med history including hypertension, CKD, morbid obesity, hypothyroidism, who did not follow to closely with me with his last visit to see me August 2023. I reviewed evaluation by my colleague. I obtained and reviewed discharge summary from [facility], patient was admitted January 25, 2025 and discharged January 27, 2025. Discharge diagnoses listed acute CHF, atrial fibrillation with rapid ventricular response. At that time patient presented to ER with complaint of increased dyspnea on exertion, but reported fatigue and shortness of breath for over 6 months prior to presentation. I obtained reviewed and reconciled patient's medication. Notes significant medication change except. Since the discharge, patient compliant with medication, she denied increase shortness of breath. She today tells me her major issue is feeling tired that is never improved after this hospitalization. She tells me much has been explained to her yet she did not remember anything she want me to further clarify her medication and what is going on . She told me she saw many doctors they all tell hershe is fine. She brought in quite detailed information regarding discharge, I reviewed and reconciled patient's medication. I also reviewed laboratory results x-ray, EKG and echocardiogram report during this hospitalization. ROS: GENERAL: Negative for malaise, significant weight loss and fever RESPIRATORY: No cough, wheezing or shortness of breath, See HPI CARDIOVASCULAR: Negative for chest pain, leg swelling and palpitations, See HPI GI: Negative for abdominal discomfort, changes in bowel habits, blood in stool or black stools ENDOCRINE: Negative for cold or heat intolerance, polyuria, polydipsia and goiter NEURO: No persistent headache, fainting, seizures, strokes, TIAs, weakness, numbness or tingling PAST MEDICAL HISTORY: Patient Active Problem List Diagnosis Date Noted HTN (hypertension) 09/20/2022 CKD (chronic kidney disease) stage 3, GFR 30-59 ml/min ([facility] V24, [facility] V28) 09/20/2022 COVID-19 05/29/2022 Hyperlipidemia 08/22/2020 Herpes zoster without complication 11/25/2017 Elevated glucose 09/10/2017 Morbid obesity ([facility] V24, [facility] V28) 06/03/2013 DDD (degenerative disc disease), lumbar 01/26/2013 Osteoarthritis of hip 01/26/2013 Menopausal state 10/16/2010 Hypothyroid 07/13/2009 SOCIAL HISTORY: Social History Tobacco Use Smoking status: Never Smokeless tobacco: Never Substance Use Topics Alcohol use: Not on file FAMILY HISTORY: Family Status Relation Name Status Neg Hx (Not Specified) Father at age 92 Mother Alive Brother Alive Brother Alive Sister Alive scleroderma No partnership data on file Family History Problem Relation Name Age of Onset Breast cancer Neg Hx ACTIVE MEDICATIONS: No outpatient medications have been marked as taking for the 02/14/25 encounter (Office Visit) with Bishop Narayanan MD. ALLERGIES: Amoxicillin-pot clavulanate, Iodinated contrast media, Penicillins, and Sulfa (sulfonamide antibiotics) PHYSICAL EXAM: Blood pressure 100/68, pulse 91, temperature 36.5 ??C (97.7 ??F), temperature source Oral, resp. rate 18, height 1.676 m (66 ), weight 110 kg (242 lb). Body mass index is 39.06 kg/m??. BMI is greaterthan 25.0 (above the normal range) - see Plan APPEARANCE: Alert and in no acute distress NECK: No JVD HEART: Normal S1-S2 no S3 LUNG: clear to auscultation bilaterally ABDOMEN: Bowel sounds normoactive, no bruits and soft, non-tender, without organomegaly or palpablemasses Lower extremity without edema Patient ambulating freely, not orthostatic. LABS: No results found for: WBC , HGB , HCT , MCV , PLT No results found for: GLUCOSE , CALCIUM , NA , K , CO2 , CL , BUN , CREATININE No results found for: TSH Wt Readings from Last 5 Encounters: 02/14/25 110 kg (242 lb) 10/14/24 113 kg (250 lb) 02/04/24 109 kg (240 lb 6.4 oz) 07/28/23 111 kg (244 lb) 01/23/23 110 kg (242 lb 9.6 oz) BP Readings from Last 5 Encounters: 02/14/25 100/68 10/14/24 124/80 02/04/24 132/78 07/28/23 120/78 01/23/23 136/74 IMPRESSION: No diagnosis found. PLAN: Pt presents for evaluation of multiple medical problems, after recent hospitalization for congestive heart failure/rapid A-fib. This patient has a complex past med history including hypertension, CKD, morbid obesity, hypothyroidism, who did not follow to closely with me with his last visit to see me August 2023. I reviewed evaluation by my colleague. I obtained and reviewed discharge summary from [facility], patient was admitted January 25, 2025 and discharged January 27, 2025. Discharge diagnoses listed acute CHF, atrial fibrillation with rapid ventricular response. At that time patient presented to ER with complaint of increased dyspnea on exertion, but reported fatigue and shortness of breath for over 6 months prior to presentation. I obtained reviewed and reconciled patient's medication. Notes significant medication change except. Since the discharge, patient compliant with medication, she denied increase shortness of breath. She today tells me her major issue is feeling tired that is never improved after this hospitalization. She tells me much has been explained to her yet she did not remember anything she want me to further clarify her medication and what is going on . She told me she saw many doctors they all tell hershe is fine. She brought in quite detailed information regarding discharge, I reviewed and reconciled patient's medication. I also reviewed laboratory results x-ray, EKG and echocardiogram report during this hospitalization. 1 according to discharge summary, patient reported not feeling well, dyspnea exertion increasing resting shortness of breath for at least half a year. According to the patient, patient reported fatigue as being one of the main reason. During this hospitalization patient was found to have A-fib with rapid ventricular response there is however no documentation regarding maximal heart rate. BNP was 103, echocardiogram showed low normal LV function. There is documentation ischemic workup and patient has appointment already scheduled with cardiology in 3 days.. 2 patient reported ongoing fatigue, patient borderline blood pressure after recent significant medication adjustment I discussed with the patient regarding her medication and reconciled patient medication list. Patient should discontinue Norvasc. Patient can take half of her ARB. I did however closely monitor patient's renal function. I want to cardiology to further comment on initiation of Jardiance. 3 patient appears to have quite significant diuresis, GFR 26, fasting blood glucose/random glucose 108, most recent A1c quite favorable.. Laboratory results showed sodium 139, potassium 4.1, chloride 102, bicarb 27, BUN 25, creatinine 1.89, white count 9.9, hemoglobin 12.6, platelet 327. Patient lives alone, I discussed with patient in detail regarding potential issues, differential diagnosis, medication change and my plan for further evaluation. I want the patient to find out when the system is her next visit with nephrology. With new initiation of anticoagulation, I will monitor CBC I will monitor TSH I will arrange follow-up visit in 3 weeks time. We decided to continue current diuresis,No orders of the defined types were placed in this encounter. ADDITIONAL ORDERS: None Bishop Narayanan MD on 02/14/2025 at 1:18 PM EDT documented in this encounter Plan of Treatment Upcoming Encounters Date Type Department Care Team (Late st Contact Info) Description 03/07/2025 11:00 AM EDT Office Visit Adult Medicine [address] [phone] Bishop Narayanan MD [address] [place] [phone] Scheduled Orders Name Type Priority Associated Diagnoses Orde r Schedule Thyroid stimulating hormone with reflex to free t4 and free t3 Lab Routine Hypothyroidism, unspecified type 1 Occurrences starting 02/14/2025 until 02/14/2026 CBC and differential Lab Routine New onset a-fib ([facility]/HCC V24, [facility] V28) 1 Occurrences starting 02/14/2025 until 02/14/2026 documented as of this encounter Visit Diagnoses Diagnosis New onset a-fib (CMS/HCC V24, CMS/HCC V28)- Primary Atrial fibrillation Congestive heart failure, unspecified HF chronicity, unspecified heart failure type (CMS/HCC V24, CMS/[facility] V28) Other fatigue Dizziness Dizziness and giddiness Renal insufficiency Unspecified disorder of kidney and ureter Hypothyroidism, unspecified type documented in this encounter Historical Medications * This list may reflect changes made after this encounter. metoprolol tartrate (LOPRESSOR) 25 mg tablet Take 1 tablet (25 mg total) by mouth 2 (two) times a day. 01/28/2025 losartan (COZAAR) 50 mg tablet Take 1 tablet (50 mg total) by mouth 1 (one) time each day. 10/12/2024 10/12/2025 furosemide (LASIX) 20 mg tablet Take 1 tablet (20 mg total) by mouth 1 (one) time each day. 01/28/2025 Jardiance 10 mg tablet Take 1 tablet (10 mg total) by mouth 1 (one) time each day in the morning. 01/28/2025 Eliquis 5 mg tablet Take 1 tablet (5 mg total) by mouth 2 (two) times a day. 01/27/2025 added in this encounter Care Teams Cattle Brander Relationship Specialty Start Date End Date Bishop Narayanan MD [address] [place] [address] PCP - General Internal Medicine 11/10/15 documented as of this encounter
[2025-02-17 13:50] VITALS: BP 90/62; PULSE 105; BMI 39.6
--- NOTE | 2025-02-17 13:50 | MHC.OFFVIS ---
Vital Signs 02/17/25 13:50 Height 5 ft 6 in Weight 245 lb 2.464 oz BMI 39.6 BP 90/62 Blood Pressure Location Lt brachial Position Sitting Pulse 105 H Pulse Source Monitor Intake Visit Reasons: f/u with Ekg per NS Java Tech Required: No Allergies amoxicillin Allergy (Verified 02/17/25 13:54) Wheezing Iodinated Contrast Media (IV Contrast Dye) Allergy (Verified 02/17/25 13:54) Shortness of Breath Medication List - Last Reconciled 02/18/25 by Mili Braxton NP-C apixaban 5 mg PO BID 30 days empagliflozin (Jardiance) 10 mg PO DAILY furosemide (Lasix) 20 mg PO DAILY 30 days levothyroxine 100 mcg PO DAILY@0630 metoprolol tartrate 50 mg PO BID HPI HPI f/u with Ekg per NS: Details: Aisha is a 74-year-old female past medical history of hypertension, obesity, CKD who was recently admitted to [facility] with increased shortness of breath and found to have atrial fibrillation and decompensated heart failure. She was treated with heart rate control, put on anticoagulation and diuresed. Troponin level was normal. Echocardiogram showed EF 50-55%, mildly dilated left atrium. She now presents for follow-up. Today she reports she is still not feeling like her normal self. She says she is a little bit off. She is not having shortness of breath like she previously did. She denies PND, orthopnea or edema. No heart palpitations, presyncope, syncope, falls. No chest discomfort at rest or with activity. She has never had atrial fibrillation in the past. She has been taking her meds as directed. No bleeding issues reported. Her losartan dose was recently reduced by her PCP. [facility] Social History Household Members: None Patient Tobacco Use Status: Former Tobacco user Tobacco use type: Cigarette Cigarette Packs Per Day: 1.5 Years Smoked: 20 years service: No Review of Systems Const All systems reviewed & are unremarkable except as noted in HPI and below ENT Denies dizziness Card Denies chest pain, Denies chest pain at rest, Denies chest pain with activity, Denies rapid heart rate, Denies pedal edema, Denies edema, Denies leg edema, Denies lightheadedness, Denies palpitations, Denies dyspnea, Reports dyspnea on exertion and Denies orthopnea Resp Denies cough, Denies dyspnea and Reports dyspnea on exertion GI Denies hematochezia and Denies change in stool character Musc Denies abnormal gait, Denies limited range of motion, Denies muscle cramps, Denies muscle weakness, Denies numbness, Denies radiating pain into limb, Denies stiffness and Denies tingling Neuro Denies abnormal gait, Denies dizziness, Denies numbness and Denies tingling Endo Denies palpitations Physical Exam Vital Signs: Last Vital Signs Pulse 105 H 02/17/25 13:50 BP 90/62 02/17/25 13:50 BMI result Body Mass Index 39.6 Const General: cooperative, healthy appearing, comfortable and no acute distress Orientation/consciousness: patient oriented x3 Neck Neck: Yes normal visual inspection Resp Effort & Inspection: normal respiratory effort Auscultation: clear to auscultation bilaterally, no rales, no rhonchi and no wheezes Cardio Rate: regular rate Rhythm: regular rhythm Heart sounds: S1 normal heart sound present, S2 normal heart sound present, no gallops, no murmurs and no rubs Neuro General: patient oriented x3 Extrem General: Yes normal to inspection Psych Appearance: grossly normal Mental Status: mental status grossly normal Speech and movement: Normal speech and movement present Office Procedures EKG Details: Today, read by me, atrial fibrillation, rate 105, nonspecific T-wave abnormality, QTC 438 milliseconds [id number], Complete Assessment & Plan Assessment & Plan (1) New onset a-fib: Code(s): I48.91 - Unspecified atrial fibrillation Category: Medical Plan: [facility] admission 01/25/2025 with finding of AFib RVR treated with heart rate control. Discharged with metoprolol 25 mg b.i.d. and Eliquis 5 mg b.i.d.. EKG today showing atrial fibrillation, rate 105. Blood pressure on low side. Will have her stop losartan and will increase metoprolol dose to 50 mg b.i.d.. Instructed on home blood pressure checks. Will check Holter to see if she is having persistent versus paroxysmal AFib. Will check home sleep study to evaluate for obstructive sleep apnea. Will check pharmacological nuclear stress test to evaluate for ischemia. She tells me she wants to walk on the treadmill so can plan for a walking Lexiscan test. Continue Eliquis without interruption. If she has persistent AFib then will plan for cardioversion after 1 month of anticoagulation use. (2) CHF (congestive heart failure): Code(s): I50.9 - Heart failure, unspecified Category: Medical Qualifiers: Heart failure chronicity: acute Heart failure type: unspecified Qualified Code(s): I50.9 - Heart failure, unspecified Plan: Recent new onset congestive heart failure in the setting of AFib RVR, managed with diuresing and put on Lasix 20 mg daily. Her echocardiogram showed EF 50-55%, mild LV, mildly dilated left atrium. She does not appear fluid overloaded on exam. Blood pressure on low side. Reviewed good hydration. Signs and symptoms of heart failure reviewed. (3) Hypertension: Code(s): I10 - Essential (primary) hypertension Category: Medical Qualifiers: Hypertension type: unspecified Qualified Code(s): I10 - Essential (primary) hypertension Plan: Blood pressure goal less than 130/80. Initial blood pressure reported as 90/62 however recheck done by me 102/60. Will be having her stop losartan and increase metoprolol dose for heart rate control. (4) Hospital discharge follow-up: Code(s): Z09 - Encounter for follow-up examination after completed treatment for conditions other than malignant neoplasm Category: Medical Plan: Hospital notes reviewed (5) Hypersomnia: Code(s): G47.10 - Hypersomnia, unspecified Category: Medical Plan: Reports that she does not sleep well. She wakes up frequently and naps in the day. Checking home sleep study. Plan I discussed with the patient the diagnosis of atrial fibrillation and the associated risks, including the increased risk of stroke. We talked about the importance of anticoagulation therapy with Eliquis to reduce stroke risk and the potential for cardioversion if atrial fibrillation persists. We discussed nincreasing her metoprolol for better heart rate control. I explained the procedures for the heart monitor, stress test, and sleep study, emphasizing the need for these tests to guide further management. Orders: Orders RT home sleep study 02/17/25 G47.10 - Hypersomnia, unspecified Medications: New metoprolol tartrate dose increased 50 mg PO BID 60 tabs 3RF Patient Instructions: - Continue taking all prescribed medications, especially Eliquis, without interruption. - Stop Losartan and Increase dose of Metoprolol. - Attend scheduled appointments for heart monitor, stress test, and sleep study. - Report any new or worsening symptoms, such as increased shortness of breath or lightheadedness. Patient was informed and verbally consented to the use of an ambient scribe for clinic note documentation during this visit. Visit time spent on chart review, interview, assessment, orders, documentation. Coding Level of Care Code Est Pt Level 4 (96054) Complex EM visit Add On G2211 Diagnoses New onset a-fib I48.91 CHF (congestive heart failure) I50.9 Heart failure chronicity: acute Heart failure type: unspecified Hypertension, unspecified type I10 Hypertension type: unspecified Hospital discharge follow-up Z09 Hypersomnia G47.10 CPT Codes EKG - CPT: [id number], Complete ([id number]) Time Spent (min) 30
--- OUTSIDE RECORDS SUMMARY | 2025-02-17 16:59 | XMS_ITS | Clinical Summary ---
Author Organization [facility] Address [address] [address] Phone Care Team Providers Care Hand Pleater Name Role Phone Bishop Narayanan MD Primary Care Provider [phone] Allergies Active Allergy Reactions Criticality Noted Date [...] this topic Insurance Medicare Medicare Care Teams Hand Pleater Relationship Specialty Start Date End Date Bishop Narayanan MD [address] [place] [phone] PCP - General Internal Medicine 08/25/23
--- OUTSIDE RECORDS SUMMARY | 2025-02-17 16:59 | XMS_ITS | Clinical Summary ---
Author Organization [facility] [address] [facility] Address [address] [place] [address] Phone Care Team Providers Care Radiology Interventional Physician Name Role Phone Bishop Narayanan MD Primary Care Provider [phone] Allergies Active Allergy Reactions Criticality Noted Date [...] mouth 1 (one) time each day. Active Eliquis 5 mg tablet Take 1 tablet (5 mg total) by mouth 2 (two) times a day. 5 Active Jardiance 10 mg tablet Take 1 tablet (10 mg total) by mouth 1 (one) time each day in the morning. 5 Active furosemide (LASIX) 20 mg tablet Take 1 tablet (20 mg total) by mouth 1 (one) time each day. 5 Active losartan (COZAAR) 50 mg tablet Take 1 tablet (50 mg total) by mouth 1 (one) time each day. 5 10/13/19 26 Active metoprolol tartrate (LOPRESSOR) 25 mg tablet Take 1 tablet (25 mg total) by mouth 2 (two) times a day. Active Active Problems Problem Noted Date Diagnosed Date HTN (hypertension) 09/20/2022 CKD (chronic kidney disease) stage 3, GFR 30-59 ml/min ([facility] V24, [facility] V28) 09/20/2022 COVID-19 05/29/2022 Hyperlipidemia 08/22/2020 Herpes zoster without complication 11/25/2017 Elevated glucose 09/10/2017 Morbid obesity ([facility] V24, [facility] V28) 2012 Overview (05/05/2024): BMI 42.47 on 05/24/13. DDD (degenerative disc disease), lumbar 01/27/20 13 Osteoarthritis of hip 01/26/2013 Overview (05/05/2024): IMO update Menopausal state 10/16/2010 Hypothyroid 07/13/2009 Encounters Date Type Department Care Team Description 02/14/2025 1:30 PM EDT Office Visit Adult Medicine [address] [phone] Bishop Narayanan MD New onset a-fib ([facility] V24, [facility] V28) (Primary Dx); Congestive heart failure, unspecified HF chronicity, unspecified heart failure type ([facility] V24, [facility] V28); Other fatigue; Dizziness; Renal insufficiency; Hypothyroidism, unspecified type 02/01/2025 Telephone Adult Medicine [address] [phone] Enid Cash [place] 01/25/2025 Telephone Adult Medicine [address] [address] Lillian Jamil RN from Last 3 Months [...] 18 02/14/2025 1:07 PM EDT Oxygen Saturation 98% 10/14/2024 2:59 PM EDT Inhaled Oxygen Concentration - - Weight 110 kg (242 lb) 02/14/2025 1:07 PM EDT Height 167.6 cm (5' 6 ) 02/14/2025 1:07 PM EDT Body Mass Index 39.06 02/14/2025 1:07 PM EDT Plan of Treatment Upcoming Encounters Date Type Department Care Team (Late st Contact Info) Description 03/07/2025 11:00 AM EDT Office Visit Adult Medicine [facility] [address] [place], [place] [phone] Bishop Narayanan MD [address], [place] Health Maintenance Due Date Last Done Comments [...] Screening Completed 03/15/2014 Breast Cancer Screening Discontinued 09/24/19 19, 03/20/2017, 03/14/2017 HIB Vaccines Aged Out No [...] Procedure Name Priority Date/Time Associated Diagnosis Comments EXTERNAL CLINICAL LAB 02/08/2025 ANNUAL BMP BLOOD TEST Routine 03/09/2024 LIPID PANEL Routine 07/28/2023 [facility] MAMMO BI INCL CAD Routine 09/23/2018 1:08 PM EDT Encounter for screening mammogram for malignant neoplasm of breast HEPATITIS C SCREENING Routine 03/15/2014 from Last 3 Months or Most Recently Relevant to Health Maintenance Results * External clinical lab (02/08/2025) Provider [facility] LAB BLOOD ORDERABLES Fin al Result * Annual BMP Blood Test (03/09/2024) Pathologist [facility] Annual BMP Blood Test abstracted Historical Provider HEALTH MAINTENANCE Final Result * (ABNORMAL) Lipid panel (07/28/2023) LDL/HDL Ratio 3 0 - 4 Triglycerides 111 0 - 150 mg/dL Cholesterol 249(A) 0 - 200 mg/dL HDL 73 >=40 mg/dL LDL Cholesterol 154(A) 0 - 100 mg/dL Blood Venous blood specimen / Unknown Historical Provider LAB BLOOD ORDERABLES Lucy l [...] Insurance MEDICARE MEDICAID - [place] Care Teams Radiology Interventional Physician Relationship Specialty Start Date End Date Bishop Narayanan MD [address] [place] [address] PCP - General Internal Medicine 11/10/15
== END 2025-02-17 14:34 | disposition home or self-care (01) ==
LOC: HO.HCS 12:52
PROVIDERS: PCP Nurse Practitioner; Visit Provider Nurse Practitioner Family
DX: I48.91 Unspecified atrial fibrillation (principal); I50.9 Heart failure, unspecified; I10 Essential (primary) hypertension; Z09 Encounter for follow-up examination after completed treatment for conditions other than malignant neoplasm; G47.10 Hypersomnia, unspecified
CPT/HCPCS: 93010; 99214; G2211

== ENCOUNTER → 2025-02-17 12:51 | Outpatient (BNVA) | payer MEDICARE, SELFPAY | PROVIDERS: PCP Nurse Practitioner; Visit Provider Nurse Practitioner Family | DX: Z09 Encounter for follow-up examination after completed treatment for conditions other than malignant neoplasm (principal); I50.9 Heart failure, unspecified; I10 Essential (primary) hypertension; E66.9 Obesity, unspecified; Z86.79 Personal history of other diseases of the circulatory system; Z87.891 Personal history of nicotine dependence; Z79.01 Long term (current) use of anticoagulants; Z79.899 Other long term (current) drug therapy | CPT/HCPCS: 93005; 99212 ==

== ENCOUNTER → 2025-02-25 10:42 | Outpatient (REF) | payer MEDICARE, SELFPAY ==
--- NOTE | 2025-02-25 10:45 | HM_ITS ---
* Total monitoring time 5 days and 9 hours. * Underlying rhythm is atrial fibrillation. * Average ventricular rate 70/Min. * Rare ventricular ectopy. * Pauses noted, maximum 2.6 seconds during sleep hours. Does not reach significance. * No patient markers or diary events. MTDD
--- OUTSIDE RECORDS SUMMARY | 2025-02-25 11:19 | XMS_ITS | Clinical Summary ---
Author Organization [facility] Address [address] [address] Phone Care Team Providers Care Contact Center Team Lead Name Role Phone Bishop Narayanan MD Primary Care Provider [phone] Allergies Active Allergy Reactions Criticality Noted Date [...] this topic Insurance Medicare Medicare Care Teams Contact Center Team Lead Relationship Specialty Start Date End Date Bishop Narayanan MD [address] [place] [phone] PCP - General Internal Medicine 08/25/23
--- OUTSIDE RECORDS SUMMARY | 2025-02-25 11:19 | XMS_ITS | Clinical Summary ---
Author Organization [facility] [address] [facility] Address [address] [place] [address] Phone Care Team Providers Care Stock Associate Name Role Phone Bishop Narayanan MD Primary Care Provider [phone] Allergies Active Allergy Reactions Criticality Noted Date [...] kidney disease) stage 3, GFR 30-59 ml/min ([facility] V24, [facility] V28) 09/20/2022 COVID-19 05/29/2022 Hyperlipidemia 08/22/2020 Herpes zoster without complication 11/25/2017 Elevated glucose 09/10/2017 Morbid obesity ([facility] V24, [facility] V28) 2012 Overview (05/05/2024): BMI 42.47 on 05/24/13. DDD (degenerative disc disease), lumbar 01/27/20 13 Osteoarthritis of hip 01/26/2013 Overview (05/05/2024): IMO update Menopausal state 10/16/2010 Hypothyroid 07/13/2009 Encounters Date Type Department Care Team Description 02/14/2025 1:30 PM EDT Office Visit Adult Medicine [address] [address] Bishop Narayanan MD New onset a-fib ([facility] V24, [facility] V28) (Primary Dx); Congestive heart failure, unspecified HF chronicity, unspecified heart failure type ([facility] V24, [facility] V28); Other fatigue; Dizziness; Renal insufficiency; Hypothyroidism, unspecified type 02/01/2025 Telephone Adult Medicine [address] [phone] Enid Cash [place] 01/25/2025 Telephone Adult Medicine [address] [phone] Lillian Jamil RN from Last 3 Months [...] Visit Adult Medicine [facility] [address], [place] [phone] Bishop Narayanan MD [address], [place] Health Maintenance Due Date Last Done [...] TEST Routine 03/09/2024 LIPID PANEL Routine 07/28/2023 [facility] MAMMO BI INCL CAD Routine 09/23/2018 1:08 PM EDT Encounter for screening mammogram for malignant neoplasm of breast HEPATITIS C SCREENING Routine 03/15/2014 from Last 3 Months or Most Recently Relevant to Health Maintenance Results * External clinical lab (02/08/2025) Provider Mrena Onbase LAB BLOOD ORDERABLES Fin al Result * Annual BMP Blood Test (03/09/2024) Pathologist [facility] Annual BMP Blood Test abstracted Historical Provider [...] Insurance MEDICARE MEDICAID - [place] Care Teams Stock Associate Relationship Specialty Start Date End Date Bishop Narayanan MD [address] [place] [address] PCP - General Internal Medicine 11/10/15
== END ==
LOC: HO.CARD 10:42
PROVIDERS: PCP Nurse Practitioner; Visit Provider Internal Medicine Cardiovascular Disease
DX: I11.0 Hypertensive heart disease with heart failure (principal); I50.9 Heart failure, unspecified; I48.91 Unspecified atrial fibrillation
CPT/HCPCS: 93242

== ENCOUNTER → 2025-02-25 10:45 | Outpatient (BNV) | payer MEDICARE, SELFPAY | PROVIDERS: PCP Nurse Practitioner; Visit Provider Internal Medicine | DX: I49.3 Ventricular premature depolarization (principal); I48.91 Unspecified atrial fibrillation | CPT/HCPCS: 93244 ==

== ENCOUNTER 2025-04-08 08:24 | Outpatient (AMB) | payer MEDICARE, SELFPAY ==
--- NOTE | 2025-04-08 08:31 | A.OFFVIS_ITS ---
Vital Signs 04/08/25 08:32 Height 5 ft 6 in Weight 249 lb 9.012 oz BMI 40.3 BP 90/62 Blood Pressure Location Lt brachial Position Sitting Pulse 92 Pulse Source Pulse Oximeter Intake Visit Reasons: 4-6 wk follow up after testings Piecer Required: No Allergies amoxicillin Allergy (Verified 04/08/25 08:36) Wheezing Iodinated Contrast Media (IV Contrast Dye) Allergy (Verified 04/08/25 08:36) Shortness of Breath Medication List - Last Reconciled 04/08/25 by Mili Braxton NP-C apixaban 5 mg PO BID 90 days blood pressure monitor (Blood Pressure Kit) As directed empagliflozin (Jardiance) 10 mg PO DAILY 90 days furosemide (Lasix) 20 mg PO DAILY 90 days levothyroxine 100 mcg PO DAILY@0630 losartan 25 mg PO DAILY metoprolol tartrate 50 mg PO BID HPI HPI 4-6 wk follow up after testings: Details: Aisha is a 74-year-old female past medical history of hypertension, obesity, CKD who was admitted to [facility] 01/25/25 with increased shortness of breath and found to have atrial fibrillation and decompensated heart failure. She was treated with heart rate control, put on anticoagulation and diuresed. Troponin level was normal. Echocardiogram showed EF 50-55%, mildly dilated left atrium. On last visit Holter monitor, sleep study and nuclear stress test were ordered. She did complete the Holter monitor and now presents for follow-up. Today she reports she is noticing fatigue, otherwise she feels well. She denies having shortness of breath, PND, orthopnea or edema. No heart palpitations, presyncope, syncope, falls. No chest discomfort at rest or with activity. She says she tires easily but is mostly sedentary. She is willing to follow through with a sleep study. She does not want to do the nuclear stress test. She adamantly refuses cardioversion. She has been taking her meds as directed. No bleeding issues reported. [facility] Social History Household Members: None Patient Tobacco Use Status: Former Tobacco user Tobacco use type: Cigarette Cigarette Packs Per Day: 1.5 Years Smoked: 20 years service: No Review of Systems Const All systems reviewed & are unremarkable except as noted in HPI and below Reports fatigue ENT Denies dizziness Card Denies chest pain, Denies chest pain at rest, Denies chest pain with activity, Denies rapid heart rate, Denies pedal edema, Denies edema, Denies leg edema, Denies lightheadedness, Denies palpitations, Denies dyspnea, Denies dyspnea on exertion and Denies orthopnea Resp Denies cough, Denies dyspnea and Denies dyspnea on exertion GI Denies hematochezia and Denies change in stool character Musc Denies abnormal gait, Denies limited range of motion, Denies muscle cramps, Denies muscle weakness, Denies numbness, Denies radiating pain into limb, Denies stiffness and Denies tingling Neuro Denies abnormal gait, Denies dizziness, Denies numbness and Denies tingling Endo Reports fatigue and Denies palpitations Physical Exam Vital Signs: Last Vital Signs Pulse 92 04/08/25 08:32 BP 90/62 04/08/25 08:32 BMI result Body Mass Index 40.3 Const General: cooperative, healthy appearing, comfortable and no acute distress Orientation/consciousness: patient oriented x3 Neck Neck: Yes normal visual inspection Resp Effort & Inspection: normal respiratory effort Auscultation: clear to auscultation bilaterally, no rales, no rhonchi and no wheezes Cardio Rate: regular rate Rhythm: abnormal rhythm Heart sounds: S1 normal heart sound present, S2 normal heart sound present, no gallops, no murmurs and no rubs Neuro General: patient oriented x3 Extrem General: Yes normal to inspection, No no pedal edema and No calf tenderness Psych Appearance: grossly normal Mental Status: mental status grossly normal Speech and movement: Normal speech and movement present Assessment & Plan Assessment & Plan (1) New onset a-fib: Code(s): I48.91 - Unspecified atrial fibrillation Category: Medical Plan: [facility] admission 01/25/2025 with finding of AFib RVR treated with heart rate control. Echocardiogram 01/26/2025 showed EF 50-55%, mild LVH, mildly dilated left atrium. Outpatient Holter monitor done on 02/25/2025 for 5 days shows atrial fibrillation with average heart rate 70 beats per minute. Cardioversion was discussed with her and she adamantly refuses. Sleep study previously ordered and she initially declined but now is agreeable. She refuses nuclear stress testing. At this time will continue to treat with heart rate control. Continue metoprolol tartrate 50 mg b.i.d.. Continue Eliquis 5 mg b.i.d. for anticoagulation. Cardiology follow-up 6 months, sooner if needed. (2) CHF (congestive heart failure): Code(s): I50.9 - Heart failure, unspecified Category: Medical Qualifiers: Heart failure chronicity: acute Heart failure type: unspecified Qualified Code(s): I50.9 - Heart failure, unspecified Plan: Recent new onset congestive heart failure in the setting of AFib RVR, managed with diuresing and put on Lasix 20 mg daily. At this time she does not appear fluid overloaded and heart rate is well controlled. She is frustrated with frequent urination with diuretic use. Will change her Lasix to only if needed. Signs and symptoms of heart failure reviewed. (3) Hypertension: Code(s): I10 - Essential (primary) hypertension Category: Medical Qualifiers: Hypertension type: unspecified Qualified Code(s): I10 - Essential (primary) hypertension Plan: Blood pressure goal less than 130/80. Blood pressure again low today at 90/62. She tells me home blood pressures range 118- 157 systolic over 65-92 diastolic. Daily Lasix being stopped and changed to PRN. Continue losartan and metoprolol. Continue with home blood pressure monitoring (4) Hypersomnia: Code(s): G47.10 - Hypersomnia, unspecified Category: Medical Plan: Reports that she does not sleep well. She wakes up frequently and naps in the day. Checking home sleep study. Plan We discussed the management of atrial fibrillation, including the continuation of metoprolol for heart rate control, and the option of cardioversion, which the patient declined. The patient expressed concerns about medication side effects, particularly with furosemide, leading to the decision to discontinue it and monitor for any adverse effects. A sleep study was recommended to further investigate the patient's fatigue and lack of energy. Patient Instructions: - Continue taking metoprolol as prescribed. - Stop taking furosemide and monitor for leg swelling or breathing difficulties - use if needed. - Complete the sleep study as instructed. - Follow up in six months or sooner if symptoms worsen. Patient was informed and verbally consented to the use of an ambient scribe for clinic note documentation during this visit. Visit time spent on chart review, interview, assessment, orders, documentation. Coding Level of Care Code Est Pt Level 4 (49576) Complex EM visit Add On G2211 Diagnoses New onset a-fib I48.91 CHF (congestive heart failure) I50.9 Heart failure chronicity: acute Heart failure type: unspecified Hypertension, unspecified type I10 Hypertension type: unspecified Hypersomnia G47.10 Time Spent (min) 30
[2025-04-08 08:32] VITALS: BP 90/62; PULSE 92; BMI 40.3
--- OUTSIDE RECORDS SUMMARY | 2025-04-08 08:36 | XMS_ITS | Clinical Summary ---
Author Organization [facility] Address [address] [phone] Phone Care Team Providers Care Production Helper Name Role Phone Bishop Narayanan MD Primary Care Provider [phone] Allergies Active Allergy Reactions Criticality Noted Date [...] Mass Index - - Plan of Treatment Upcoming Encounters Date Type Department Care Team (Late st Contact Info) Description 04/14/2025 Orders Only [facility] [address] [facility] [address] [place] [address] Gerard Sebastian MD [address] [facility] [address] [place] [address] Stage 3a chronic kidney disease (HCC); Persistent proteinuria Health Maintenance Due Date Last Done Comments [...] this topic Insurance Medicare Medicare Care Teams Production Helper Relationship Specialty Start Date End Date Bishop Narayanan MD [address] [place] [phone] PCP - General Internal Medicine 08/25/23
== END 2025-04-08 09:06 | disposition home or self-care (01) ==
LOC: HO.HCS 08:25
PROVIDERS: PCP Nurse Practitioner; Visit Provider Nurse Practitioner Family
DX: I48.91 Unspecified atrial fibrillation (principal); I50.9 Heart failure, unspecified; I10 Essential (primary) hypertension; G47.10 Hypersomnia, unspecified
CPT/HCPCS: 99214; G2211

== ENCOUNTER → 2025-04-08 08:24 | Outpatient (BNVA) | payer MEDICARE, SELFPAY | PROVIDERS: PCP Nurse Practitioner; Visit Provider Nurse Practitioner Family | DX: I10 Essential (primary) hypertension (principal); Z79.01 Long term (current) use of anticoagulants; I48.91 Unspecified atrial fibrillation; R53.83 Other fatigue; I50.9 Heart failure, unspecified; G47.10 Hypersomnia, unspecified; Z87.891 Personal history of nicotine dependence | CPT/HCPCS: 99212 ==